=== PATIENT | female | born 1940 | race Caucasian/White ===

== ENCOUNTER 2016-09-16 04:13 | Inpatient (IN) | payer MEDICARE, OTHER ==
[~2016-09-16] VITALS: Ht 157.5 cm; Wt 87.0 kg
[2016-09-16 04:19] VITALS: BP 144/83; PULSE 90; RESP 18; O2SAT 95
--- NOTE | 2016-09-16 05:04 | ED.REPORT ---
HPI-General Illness Date of Service Sep 16, 2016 ED Provider: Esequiel Burr MD A 76 year old female with a history of bipolar disorder and depression presents to the ED accompanied by her son with suicidal ideation onset just prior to arrival. The patient had recently been hoarding her medication below her mattress and told her son she was going to overdose on her pills. She reports recently fighting with her sister and moving in with her son. She attributes a portion of her suicidality to being unhappy with where her son lives, specifically "not recognizing anyone and feeling stranded on an island." The patient reports recent memory loss and anxiety attacks including chest pain, although not currently. She was seen in clinic yesterday and prescribed antibiotics for a UTI. The patient is a poor historian, making irrational statements and arguing during the interview. She will only intermittently answer questions. The patient repeatedly states "don't do this" and "just let me go home," worrying about the cost of treatment despite her son's reassurances. She is not at baseline mental status per her son. Nursing Notes Stated Complaint: DISORIENTED/SUICIDAL THOUGHTS AND ACTIONS Chief Complaint: Psychiatric Complaint Nursing Notes Reviewed: Yes Allergies: Coded Allergies: sertraline (Verified Adverse Reaction, Intermediate, Anxiety, 09/16/16) "I go bananas" General Time Seen by MD: 04:30 Chief Complaint Other (Suicidal Ideation) Hx Obtained From: Patient, Son Arrived By: Walk-in Sudden in Onset?: No Onset Occurred: Just prior to arrival Symptom Duration: Since onset Location: : Chest Severity: Current: No pain currently Severity: Maximum: Moderate Pertinent Negative: Relieved by nothing Context Related History: Reports Psychiatric history Recent Healthcare: Recent doctor visit Similar Sx Previous: No Past Medical History Past Medical History Bipolar disorder Depression Past Surgical History None reported Smoking History Unknown if Ever Smoker Social History Other Social History: Good social support, Lives with children Ambulatory Status Independent Review of Systems Unable to Obtain ROS Patient condition, Mental status Physical Exam Vital Signs Vital Signs Date Time Temp Pulse Resp B/P Pulse Ox O2 Delivery O2 Flow Rate FiO2 09/16/16 06:14 82 16 166/79 97 Room Air 09/16/16 04:19 36.6 90 18 144/83 95 Room Air Initial VS: Reviewed, Vital signs normal Head / Eyes: Atraumatic, Normocephalic ENT: Conjunctiva normal, No scleral icterus Neck: Supple, Full range of motion Respiratory: No respiratory distress Skin: Warm, Dry Neurologic: Alert, Oriented General/Constitutional: Awake, Alert, Well appearing Abnormal Mood/Affect: Positive: Flight of ideas Makes nonsensical statements Interpretation & Diagnostics Lab Results Interpretation Result Diagram: 09/16/16 0525 Test 09/16/16 05:25 09/16/16 06:00 White Blood Count 11.7th/mm3 (3.8-10.1) Red Blood Count 4.68mil/mm3 (3.90-5.20) Hemoglobin 12.8g/dL (12.0-15.6) Hematocrit 38.9% (35.0-46.0) Mean Corpuscular Volume 83.1fL (81-100) Mean Corpuscular Hemoglobin 27.4pg (27.0-35.0) Mean Corpuscular Hemoglobin Concent 32.9% (32.0-37.0) Red Cell Distribution Width 14.1% (12.3-15.4) Platelet Count 267bil/L (150-400) ECG Interpretation ECG Interpretation: Sinus rhythm rate 86 Time: 05:46 Interpreted by: ED physician CT Head Interpretation IMPRESSION: Age related white matter changes. 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 Transmitted to ED at 09/16/2016 - 6:01:54 AM PDT Study: Head CT no contrast Interpretation / Wet Read by: Interpret - Radiologist Re-Eval/Medical Decision Med Decision/Clinical Course 76-year-old female with a history of depression presents with confusion and suicidal ideation, please see history of present illness above. Workup was initiated for medical clearance. Her care is now being turned over at change of shift to Dr. Neil Britton. Time of Eval: 05:51 Re-Evaluation/Progress Note: Patient's care will be endorsed to Dr. Britton Discharge & Departure Shift Change Sign-Out Patient Care Transferred: Yes Discussed Complaint(s): Yes Laboratory Evaluation: Ordered, not yet done Imaging Studies: Imaging discussed Response to Therapy: Improved Primary Impression: Depression Depression Type: reactive depression Qualified Code: F32.9 - Major depressive disorder, single episode, unspecified Additional Impressions: Suicidal ideation Confusion Discharge Condition All VS Reviewed: Yes Condition: Improved Referrals: NOPCP (PCP) Care Transferred to: Dr. Tobi Care Transferred at: 06:00 [place] Attestation Portions of this note were transcribed by Mandie Denise. I, Dr. Burr, personally performed the history, physical exam, and medical decision-making; I reviewed and confirmed the accuracy of the information in the transcribed note. Signed by: Ralph Iglesias, 09/16/2016, 06:00 Esequiel Burr MD Sep 16, 2016 05:04 MANDIE DENISE Sep 16, 2016 05:12
[2016-09-16 05:33] LABS: Mean Corpuscular Hemoglobin 27.4 pg (27.0-35.0); Mean Corpuscular Volume 83.1 fL (81-100)
[2016-09-16 06:14] VITALS: BP 166/79; PULSE 82; RESP 16; O2SAT 97
[2016-09-16 06:36] LABS: APPEARANCE,URINE CLEAR (CLEAR,HAZY); COLOR,URINE YELLOW (YELLOW); OCCULT BLOOD,URINE NEGATIVE (NEGATIVE); UROBILINOGEN,URINE NORMAL (NORMAL)
[2016-09-16 08:16] VITALS: BP 150/65; PULSE 92; RESP 16; O2SAT 98
[2016-09-16] MEDS ORDERED: ALPRAZolam 0.5 mg Tablet PO ONE (08:55)
--- NOTE | 2016-09-16 09:18 | DRSVH ---
PROCEDURE: CT BRAIN WITHOUT CONTRAST ([id number]) INDICATIONS: confusion TECHNIQUE: Noncontrast 4.5 mm thick angled axial sections acquired from the foramen magnum to the vertex, with c oronal reformats. COMPARISON: None. FINDINGS: Image quality: Excellent. CSF spaces: Basal cisterns are patent. No extra-axial fluid collections. The ventricles are symmet juwan in size and shape. Brain: No intracranial bleeds or masses. There is cerebral volume loss for age, with resultant vent ricular and sulcal prominence. There are periventricular and deep white matter chronic small vessel ischemic changes. There is a chronic appearing lacunar infarct within the left external capsule. The re is intracranial internal carotid artery atherosclerosis. Skull and face: Calvarium and visualized facial bones appear intact, without suspicious lesions. Sinuses: Visualized sinuses and mastoids are clear. IMPRESSION: 1. No acute intracranial findings. 2. Moderate findings likely associated with chronic microvascular ischemic changes. An old basal gang albertina infarct. Note: The preliminary [facility] interpretation and the final report are concordant. Dictated by: Verona Love M.D. on 09/16/2016 at 9:16 Approved by: Verona Love M.D. on 09/16/2016 at 9:18
[2016-09-16 13:58] VITALS: BP 148/81; PULSE 84; RESP 16; O2SAT 97
[2016-09-16 18:38] VITALS: BP 147/79; PULSE 80; RESP 16; O2SAT 98
--- NOTE | 2016-09-16 19:00 | NUR ---
Nurses Admission Note 76 year old voluntary female admitted with increasing depression,anxiety,decreased sleep with suicidal ideations. Patient has voiced hopelessness with her family and was found to be hiding several medication vials under her mattress. Patient has recently been living with her son who reported increasing confusion as well as increased depressive symptoms. On 09/14/16 patient was treated at an Urgent Care for a UTI, results faxed to us and was prescribed Nitrofurantoin 100mg Q 12 hrs. Patient presented alert,oriented and responsive. She had poor recall regarding her medications,timelines and avoided speaking about her thoughts and feelings in regards to hidden medications and comments about suicide. Patient contracts for safety,denies feelings of self harm at this time. She has H/O HPTN, NIDDM, and frequent bouts of diarrhea. Will maintain q 15min. checks for safety and support.
[2016-09-16] MEDS ORDERED: Benzocaine-Menthol Lozenge 2/Pkg PO PRN (20:05)
[2016-09-16] MEDS ORDERED: Alum-Mag Hydrox-Simeth 30 mL Suspension PO PRN (20:05)
[2016-09-16] MEDS ORDERED: Magnesium Hydroxide 10 mL Oral Concentration PO PRN (20:05)
[2016-09-16] MEDS: ALPRAZolam 0.25 mg Tablet PO PRN (22:04)
[2016-09-16] MEDS: Zolpidem 5 mg Tablet for FEMALE or >65YO PO PRN (22:04)
--- NOTE | 2016-09-17 00:54 | NUR ---
Observations 1900 to 0700 Pt arrived on the floor for our ED at 1900 and was able to compete the entire intake process. Pt was anxious upon arrival and for most of the night. pt did spend some time out on the floor and visited with some of the other Pt's. Pt first appeared asleep at 23:00 and was observed every 15 minutes through the night as directed.
--- NOTE | 2016-09-17 04:20 | NUR ---
Nursing Note [id number] Pt admitted to unit on shift, appears to be adjusting well. Pt affect flat, with good eye contact maintained. Speech clear with regular rate. Pt thought process disorganized and slight confusion present with inappropriate answers to questions. Pt behavior cooperative and polite. Pt given Ambien 5mg and Xanax 0.25 at 2205. Sleep time noted 2300. Pt up at 0400 with c/o hip pain. Tylenol 650 mg and hot pack given. qw15 min safety checks done per protocol, [facility] [place] sleep, safety, behavior
[2016-09-17] MEDS: Nitrofurantoin Monohyd-Macrocryst 100 mg Capsule PO SCH ×2 (08:14→20:07)
[2016-09-17] MEDS: ALPRAZolam 0.25 mg Tablet PO PRN ×3 (10:03→20:10)
[2016-09-17 10:07] VITALS: BP 110/57; PULSE 97; RESP 16
--- NOTE | 2016-09-17 13:52 | HP ---
[address] [address] HISTORY AND PHYSICAL PATIENT: ARCHANA PAYNE : 1940 MR#: [id number] ADMIT: 09/16/2016 JOB ID: [id number] INITIAL EVALUATION: IDENTIFICATION OF PATIENT: The patient is a 76-year-old female reportedly admitted through the emergency department with evidence of increasing depression, suicidal ideation with a plan and intent to overdose. The patient reportedly was brought in by her son who she is currently residing in the [place]. CHIEF COMPLAINT: "I have really made a mess of things. I should have been smarter about how I did things in the past." This per patient report. HISTORY OF PRESENT ILLNESS: As stated above, the patient is a 76-year-old female who reportedly was admitted due to increasing factors of depression including complaints of anergia, anhedonia, delays of concentration, feelings of hopelessness, worthlessness, helplessness, significant struggles with insomnia, fluctuation of appetite and significant suicidal ideation. She reportedly identified that within the past several days she had put five pills of her sleeping medications in her mouth but spit them out. She reports that she has been residing with her son since July 2016. She reports that prior to that she was living with her daughter and her in the [facility]. She reports that she elected to move in with her son and his in [place]. She indicates that since that time she has been struggling with the fact that the son's is diagnosed as bipolar and that she has her own difficulties that the son is actually trying to take care of. She indicates that she feels that she cannot provide enough for herself despite the fact that she receives a check of over $3000.00 per month. She indicates that she has been spending her money on many of the grandkids and states that she is running low on her finances. In reviewing additional history, she notes that she has been having problems with her memory. She indicates that it seems to be getting worse over the past few months. She indicated that she cannot keep track of things including her finances. She reports that her son has assured her that he can take care of things but she is worried about his own well-being due to the fact that he is a compress trucker by trade but is having some physical difficulties. In reviewing additional history, she notes that she is a type 2 diabetic. She indicates that she does have general medical care through the local clinic. She indicates that she has been diagnosed since her in 1998. She reports that they were for 34 years and that they had their troubles but essentially they made it through pretty much everything. She indicates that she has three children, her son locally, her daughter in [place] and a son who is a chemical dependent and in and out of treatment centers per her own report. PAST MEDICAL HISTORY: Substantial for allergies to SERTRALINE. She denies any recent medical interventions, recent surgeries or fractures. Her current medication profile includes: 1. Macrobid 100 mg b.i.d. for recent diagnosis of UTI. 2. Lisinopril 10 mg daily. 3. Xanax 0.25 mg t.i.d. p.r.n. 4. Celexa 20 mg daily. 5. Tramadol 50 mg q.4 hours p.r.n. for chronic pain. 6. Ambien 5 mg at h.s. p.r.n. 7. She is also on metformin 500 mg q.h.s. and 250 mg q. a.m. PAST PSYCHIATRIC HISTORY: Substantial for previous treatment for depression at the time of her 's . She indicates that she was involved with counseling at the time but nothing of recent. She reports that she has been on Celexa for an unknown period of time and Xanax. SOCIAL HISTORY: Currently the patient is a female living with her son and his . 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 She has three adult children, a son and a daughter living in the [facility], an older son on [place]. Trauma history was not reviewed. FAMILY HISTORY: Deferred. DEVELOPMENT HISTORY: Reportedly the patient was a high school graduate with one semester of college. MENTAL STATUS EXAMINATION: General appearance: The patient is cooperative, polite. She is dressed in scrubs. She makes intermittent eye contact. She indicated that she feels overwhelmed with her current life situation. Her mood is depressed with anxious features. Her affect was congruent. Her thought process showed some evidence of loose and disorganized thinking but she is redirectable. Her thought content, she openly admitted to the above suicidal thoughts. She denied any homicidal ideation. She denied any active hallucinations or delusions. No evidence of paranoia. She was alert, oriented to time and place. Attention and concentration are fleeting. Insight and judgment are fair. ADMITTING IMPRESSIONS: AXIS I 1. Major depressive disorder, recurrent type, severe, nonpsychotic. 2. Generalized anxiety disorder features. 3. Rule out cognitive disorder, not otherwise specified. AXIS II Deferred. AXIS III 1. History of urinary tract infections. 2. History of type 2 diabetes. 3. History of hypertension. AXIS IV Stressors are noted for life transition, financial distress. AXIS V Global assessment of functioning of current 35. PLANS: 1. Recommendations for titration of Celexa to 40 mg daily. 2. Recommendations for continuation of all other medications same. 3. Recommendations for proceeding into outpatient support services including individual therapy and medication management to follow.
--- NOTE | 2016-09-17 14:41 | NUR ---
nursing note day shift S)"I just can't do this he wants me to be the strong mom he remembers" O) Pt continues to be anxious, worried that she won't be able to pay for the stay here and her son will be burdened so much he will lose his job, states she moved up here but besides her son knows no one and has no support, pt becomes very animated with jumping up then flinging herself across the bed throwing up her arms in the air as talks on the phone to son, states she has anxiety attacks that are so severe and that she just wanted to kill herself but states "God will not answer any of my prayers suicide is a sin" sobs with no tears, given anti-anxiety which she found minimally helpful, will keep self safe A)appears anxious, cooperative, distressed over family concerns P) monitor behavior, and medication effectiveness
--- NOTE | 2016-09-17 16:23 | NUR ---
Obs [facility] Pt is very restless, pressured, depressed. States that she is a failure in life. Multi family have called today, each time she has periods of panicking, she states because she is scared to disappoint them further. Pt is slightly intrusive regarding some peers, poor boundaries. Pt states that she has tried different distraction therapies but when pushed on the topic she admits that she hasn't done much. Pt was pushed by staff to stay out of her room, watch a movie or color. Pt does participate when pushed to attend groups. Good ADL's, Good meals
--- NOTE | 2016-09-17 17:28 | NUR ---
Animal Keeper Head/Counselor: S: "I'm memory is not great and I forget things." O: Patient slept 6.5+ hours last night as per staff. Patient reports thoughts of her family would be better off if they didn't have to worry about taking care of her. She denies H/I. She denies auditory and visual hallucinations. A: Patient is cooperative, polite, depressed, anxious, disorganized, overwhelmed. P: Follow your care plan, coordinate out-patient providers.
[2016-09-17] MEDS: Zolpidem 5 mg Tablet for FEMALE or >65YO PO PRN (20:45)
--- NOTE | 2016-09-18 03:33 | NUR ---
Nursing Note [id number] Pt in milieu Addendum: 09/18/16 at 0345 by TAYLOR CANO RN Pt visiting with family upon arrival to the unit. Pt family left shortly after arrival and pt quickly became anxious. Pt started crying at med room door and saying " I can't take it, I don't want to be a burden to my son he has enough to deal with". Pt affect depressed, anxious and thoughts loose and some what disconnected. Attempted to converse with Pt and pt remained guarded stating " I can't tell you I will get in trouble and you will tell everyone". Pt given HS meds, Xanax .25 along with Ambien 5mg PRN. Pt returned to [facility] for snack and to watch tv before retuning to bed. Pt noted asleep 2145. Q15 min safety checks done per protocol, no distress noted, [facility] sleep, safety, behavior
[2016-09-18] MEDS: ALPRAZolam 0.25 mg Tablet PO PRN (06:14)
[2016-09-18] MEDS: Nitrofurantoin Monohyd-Macrocryst 100 mg Capsule PO SCH ×2 (08:35→21:21)
[2016-09-18 08:40] VITALS: BP 161/87; PULSE 94; RESP 17
[2016-09-18] MEDS: BusPIRone 15 mg Dividose Tablet PO SCH ×2 (12:10→21:21)
--- NOTE | 2016-09-18 13:23 | PROG NOTE ---
[address] [address] PROGRESS NOTE PATIENT: ARCHANA PAYNE : 1940 MR#: [id number] ADMIT: 09/16/2016 JOB ID: [id number] DATE: 09/18/2016 CHIEF COMPLAINT: "I just really screwed up, I don't want to live like this any longer." This per patient report. HISTORY OF PRESENT ILLNESS: As stated above, the patient continues to struggle with factors of feelings of worthlessness, hopelessness and helplessness. She openly identified significant difficulties with anxiety throughout the morning hours stating that she feels that she has become a burden to her son and feels significant guilt and shame. She openly identified that she has been struggling for quite some time and states that she does not want live her life this way. She was able to track factor in positives of her life with some guided direction openly identifying that her family and friends mean everything to her and that she would like to continue to live life to have contact with them. She immediately, however, falls repeatedly into feelings of guilt and shame as related to her current struggles in life. OBJECTIVE: On mental status examination, she is quite anxious throughout. Dramatic, clenching her fist and grabbing her chest repeatedly with open declaration that she is a burden, that no one should have to care for her. Her speech is quite dramatic throughout. She has significant vulgarity that is scattered throughout her speech at times. Her mood is alexithymic. Her affect is labile. Her thought process shows no evidence of racing thoughts, flight of ideas, loose or disconnected thinking. Her thought content, she readily denies any evidence of suicidal ideation, intent or plan but openly states that she would like to be throughout her course of conversation stating that she feels that she can no longer be a burden to her family and friends. She denies any homicidal ideation. There was no evidence of hallucinations, delusions. She was alert, oriented to time and place. Her attention and concentration are fleeting. Insight and judgment are poor. PHYSICAL EXAM: Vital signs are current. Temperature is 36.1, pulse 94, respirations 17, BP 161/87. MEDICATION REVIEW: Includes: 1. Celexa 40 mg daily. 2. Metformin 500 mg q.h.s., 250 mg q. a.m. 3. Macrobid 100 mg b.i.d. 4. Ultram 50 mg q.4 hours p.r.n. 5. Xanax 0.25 mg t.i.d. p.r.n. 6. Also lisinopril 10 mg daily. ASSESSMENT: AXIS I 1. Major depressive disorder, recurrent type, nonpsychotic. 2. Generalized anxiety disorder. 3. Rule out cognitive disorder, not otherwise specified. AXIS II Cluster B personality features. AXIS III 1. History of urinary tract infection. 2. History of type 2 diabetes. 3. History of hypertension. AXIS IV Stressors are noted for life transition, financial distress. AXIS V Global assessment of functioning of current 35. PLANS: 1. Recommendations for discontinuation of Xanax. 2. Introductions of BuSpar 15 mg b.i.d. 3. Recommendations for continuation of therapeutic and supportive interventions including cognitive behavioral therapy, and also address the patient's underlying factors of anxiety.
--- NOTE | 2016-09-18 16:10 | NUR ---
Observations [id number] Pt was asleep upon start of shift. Pt did not attend Community Meeting but did attend breakfast, late. Pt appears to be very flighty in actions, appears nervous, anxious and emotional. Pt appears to have a very difficult time making decisions regarding any task or question. She paced the halls, unsure of what or where to go next. Pt did attend meals, eating an average of 50%. She used the phone to talk with family, which appeared to upset her. Pt also attended group, working on a Enconcert. Pt did not engage much with peers, and appeared to be anxious and upset when others talked with her. Pt was later observed hitting her head on the table and in her room. She was observed every 15 minutes of shift as directed.
[2016-09-18] MEDS: Nystatin 100,000 Unit/Gm 15 Gm Powder TOPICAL SCH ×2 (17:29→21:21)
--- NOTE | 2016-09-18 18:16 | NUR ---
Residential Plumber/Counselor: S: "I'm just really screwed, I don't want to live like this any longer." O: Patient slept 7.5 hours last night as per staff. Patient denies S/I and H/I. She denies auditory and visual hallucinations. A: Patient is cooperative, anxious, dramatic, labile, poor insight, poor judgment. P: Follow your care plan, coordinate out-patient providers.
--- NOTE | 2016-09-18 18:27 | NUR ---
Nursing Note Day shift 7am to 7pm AAOx3 Behavior- Pt presents as dependent, helpless, dramatic, and ambivalent exhibiting Affect and mood - Pt reports depression 01/05, anxiety 10/06. Mood is labile, intermittently tearful. Denies intent to hurt self but admits to hopelessness thinks her family would be better off without her Thought Process - Preoccupied with themes of guilt and shame, worthlessness and feeling like a burden on children. Difficulty concentrating. Denies A/VH. Nursing/Medication- Pts a.m. BP 167/87 p. 94, Pt received Ultram for pain in hip 01/05 with good relief. Xanax D/cd and replace with Vistaril 50mg prn TID for anxiety. Pt showered with entry level marketing assistant. Very dramatic during task, asked flex o writer operator to assist stating I cant do it by myself. Pt appears able to maintain ADLs but needed prompting and at times would stop and throw herself over the shower chair stating I just cant do it. Why cant I take care of myself. Addendum: 09/18/16 at 1834 by KELLEY COPE RN Please disregard note below This documentation was not meant for this pt. Addendum: 09/18/16 at 1841 by KELLEY COPE RN Please disregard previous addendum. This note is for pt Shelly Levy
[2016-09-18] MEDS: Zolpidem 5 mg Tablet for FEMALE or >65YO PO PRN (22:23)
--- NOTE | 2016-09-19 04:02 | NUR ---
Nursing Noc "I need my sleeping pill", Pt cooperative and ambivalent, I dont know what my medications are. Pt noted to be asleep at 2200 and remained asleep throughout the night. Continuing to monitor mood, behavior, sleep times and safety Q15 minutes. CP
--- NOTE | 2016-09-19 05:01 | NUR ---
OBSERVATIONS 1900 TO 0700 Pt was cooperative with staff and maintained appropriate behavior throughout the shift. Pt participated in evening wrap-up group, rated her day as well as her mood 10/06 and stated that although she did not set a goal in the morning, she felt happy with what she accomplished for the day. Pt became disproportionately distressed a number of times in the evening over insignificant details that were easily managed. Pt was noted asleep 2345 to 0400 and back asleep again at 0445. Maintained Q15 safety checks as directed.
[2016-09-19] MEDS: Nystatin 100,000 Unit/Gm 15 Gm Powder TOPICAL SCH ×2 (08:05→20:09)
[2016-09-19] MEDS: Nitrofurantoin Monohyd-Macrocryst 100 mg Capsule PO SCH ×2 (08:06→20:05)
[2016-09-19] MEDS: BusPIRone 15 mg Dividose Tablet PO SCH (08:06)
[2016-09-19 08:30] VITALS: BP 129/70; PULSE 99; RESP 16
--- NOTE | 2016-09-19 13:48 | PROG NOTE ---
[address] [address] PROGRESS NOTE PATIENT: ARCHANA PAYNE : 1940 MR#: [id number] ADMIT: 09/16/2016 JOB ID: [id number] DATE: 09/19/2016 CHIEF COMPLAINT: "I just can't do this to my son." This is per patient report. HISTORY OF PRESENT ILLNESS: As stated above, the patient continues to be quite anxious, dramatic, and perseverative in reference to the burden that she is placing on her son. She made an open identification that she feels that she is putting him through way too much and she was unwilling to actually look at alternative thinking. She was encouraged to continue to participate in group activities but indicates that she really has not felt that she has learned anything. She remains on medications including Celexa 40 mg daily and also received introduction doses of Buspar 15 mg b.i.d., as of yesterday. In review of her current medical status, she does have a history of type 2 diabetes with laboratory data including blood glucose of 113 at the point of arrival. Hemoglobin A1c was not completed and I will order one as of today. OBJECTIVE: On mental status exam, she remains quite anxious. Approaches myself multiple times throughout the hallway interaction. She continues to perseverate about her ongoing fears of finances. Her speech is pressured at points. Her mood is highly anxious. Her affect is elevated. Her thought process shows evidence of racing thoughts. She continues to be able to actually restructure and reorganize and redirect, but there takes great interventions with concrete presentation. She was alert, oriented to time and place. Her attention and concentration are fleeting. She denied any evidence of current suicidal or homicidal ideation. She does feel worthless and openly identifies a desire to and let it be over with. She denies any contemplative planning. Her insight and judgment are poor. PHYSICAL EXAM: Vital signs: Current are not listed for today. CURRENT MEDICATIONS: Include: 1. BuSpar 15 mg b.i.d. 2. Vistaril 50 mg t.i.d. p.r.n. 3. Celexa 40 mg q.a.m. 4. Metformin 250 mg q.a.m., 500 mg q.h.s. 5. Lisinopril 10 mg q.a.m. 6. Macrobid 100 mg b.i.d. 7. Tramadol 50 mg q.4 h. p.r.n. for moderate pain. ASSESSMENT: [place] I. 1. Generalized anxiety disorder. 2. Panic disorder without agoraphobia. 3. Major depressive disorder, recurrent type, nonpsychotic. [place] II. Cluster B personality features. [place] III. 1. History of type 2 diabetes. 2. History of hypertension. 3. History of topical rash to bilateral upper arms. [place] IV. Stressors are noted for transitional life, financial difficulties. [place] V. Global Assessment of Functioning current 30. PLAN: 1. Recommendations for introductions of BuSpar as noted, with further titration beginning tomorrow up to 30 mg b.i.d. 2. Continuation of Celexa 40 mg q.a.m. 3. Continuation of all other medications noted. 4. Patient was encouraged to participate in both individual and group therapy components with focused interventions of anxiety, utilizing anxiety workbook practice sheets, et cetera.
--- NOTE | 2016-09-19 14:18 | NUR ---
Nursing Dayshift: S: "I have fear of the known. I'm hurting my son." O: Patient very forlorn and self absorbed in self blame for current issues in her life. Declines suggestion to get her own place "I blew all of my money. My son needs it. I had a lot of car payments and insurance." Disagrees with time helping in the long run. Isolating but with occasional entrances into the dining room for a short while. Good appetite at lunch. Declined groups thus far except for goals group this AM with a goal to shower which she did. Anxiety and depression "very high". Received hydroxyzine 50 mg PO at 1128 without much effectiveness per patient. Denies harmful thoughts and hallucinations. A: Med compliant. Anxious. Fretting. P: CPOC. Monitor mood and behavior. Meds per orders.
--- NOTE | 2016-09-19 18:14 | NUR ---
REFUSED METFORMIN At 17:30 this junior technical writer approached the pt. in her room to give her scheduled Metformin. She was lying still on her bed but began flailing when this junior technical writer came in to her room. Pt. appeared very overwhelmed and upset, making statements about her son being murdered and was not willing to take her medication. Reassurance provided.
--- NOTE | 2016-09-19 18:36 | NUR ---
[facility] Day Shift Pt maintained behavioral control throughout the shift, but has difficulty maintaining emotional control. Pt affect appears labile. Pt spends most of the shift pacing the unit, resting in her room, or attempting to engage in unit activities. Pt is appropriate with staff and peers when active on the unit, despite pt inconsistent affect. Pt expresses a considerable amount of self-deprecation and negativity during interactions with staff and peers. Pt self-deprecating speech and behavior appears to worsen as the shift progresses. Pt attended community meeting and afternoon group activities. Pt attended all meals and ate approx 30% of all meals.
--- NOTE | 2016-09-19 18:45 | NUR ---
Biomedical Equipment Specialist/Counselor: S: "I'm worried about my finances." O: Patient slept 6+ hours last night as per staff. Patient denies S/I and H/I. She denies auditory and visual hallucinations. This short story writer spoke with patient's son, Newton, and he stated that patient gets $2837.00 a month, not $3800.00, however, since patient has been in his home, all of her bills have been paid and ALL credit cards are at a $0.00 balance. Son stated that he doesn't know why patient is stating that she has bill that have not been paid. He stated that patient has a surplus of $2000.00 monthly. He also stated that he did not say that he would kill himself if patient killed herself. He stated that he said, "The entire family would be so hurt if she would have killed herself." A: Patient is cooperative, anxious, dramatic, pressured speech, hopeless, helpless, labile, poor insight, poor judgment. P: Follow your care plan, coordinate out-patient providers.
--- NOTE | 2016-09-20 04:11 | NUR ---
Nursing Noc Pt presents anxious, dramatic, pressured speech, hopeless, helpless, labile, poor insight reporting diarrhea at times and prolapsing problem of possible bladder or uterus. Female nurse visualized without reported abnormality. Pt reports voiding without difficulty throughout the day. Hemoglobin A1C results back from 09/19. Pt out to DR to request sleep aid then noted to be asleep at 2345. Pt appears to remain asleep throughout the shift by Q15 minute safety checks.
[2016-09-20] MEDS: Nitrofurantoin Monohyd-Macrocryst 100 mg Capsule PO SCH ×2 (07:57→20:01)
[2016-09-20] MEDS: BusPIRone 15 mg Dividose Tablet PO SCH ×3 (07:57→20:01)
[2016-09-20 08:10] VITALS: BP 145/85; PULSE 117; RESP 20
[2016-09-20] MEDS: Nystatin 100,000 Unit/Gm 15 Gm Powder TOPICAL SCH ×2 (08:30→20:05)
--- NOTE | 2016-09-20 14:07 | PROG NOTE ---
[address] [address] PROGRESS NOTE PATIENT: ARCHANA PAYNE : 1940 MR#: [id number] ADMIT: 09/16/2016 JOB ID: [id number] DATE: 09/20/2016 CHIEF COMPLAINT: "I really don't want my son to be responsible for my bill, I'll never get over that." This per patient report. HISTORY OF PRESENT ILLNESS: As stated above, the patient continues to perseverate about the financial cost of her current hospitalization. She indicates that she is very worried and feeling hopeless about her son being responsible. She continues to show significant difficulties with anxiety throughout the daytime hours with anxious and dramatic presentation. The patient reportedly did sleep last evening fairly well per staff report, but indicates that she feels that she is not getting a full amount of sleep. OBJECTIVE: On mental status examination, the patient remains quite dramatic. She makes intermittent eye contact. She openly identifies her significant worries. Her mood is anxious. Her affect continues to be elevated. Her thought process shows perseverative thought process but she is able to redirect. She denies any evidence of current suicidal ideation, but admits to feelings of hopelessness, and shame and identifies that she just does not want to live this way. She denies any active hallucinations, delusions. She is alert, oriented to time and place. Her attention and concentration intact. Memory intact in the short term, detention, recent. Insight and judgment are fair. PHYSICAL EXAMINATION: Vital signs: Temperature is 36.3, pulse 117, respirations 20, BP 145/85. MEDICATION REVIEW: Includes: 1. BuSpar 30 mg b.i.d. 2. Vistaril 50 mg t.i.d. p.r.n. 3. Celexa 40 mg q. a.m. 4. Metformin 250 mg, 500 mg q.h.s. 5. Macrobid 100 mg b.i.d. 6. Ultram 50 mg q.4 hours p.r.n. LABORATORIES: Review of laboratory data included hemoglobin A1c at 7.5. ASSESSMENT: AXIS I 1. Major depressive disorder, recurrent type, severe, nonpsychotic. 2. Generalized anxiety disorder. 3. Panic disorder without agoraphobia. AXIS II Cluster B personality features. AXIS III 1. History of type 2 diabetes. 2. History of hypertension. 3. History of urinary tract infection. 4. History of chronic pain. AXIS IV Stressors are noted for life transition. AXIS V Global assessment of functioning of current 35. PLAN: 1. Recommendations for titration of metformin to 500 mg b.i.d. based on her elevated A1c. 2. Consideration of a hospitalist consult or referrals for outpatient practitioner to be involved in diabetic management in the future. 3. Continuation of support system as noted with probable followup including individual therapy, medication management in the [place].
--- NOTE | 2016-09-20 17:26 | NUR ---
Nursing Note [id number] S: "It is all my fault, I made a terrible decision". "I wanted someone to take care of me now". "My son is going to work himself to , and his will , and his dogs and it will be my fault". "His is bi-polar and went Hotel General Manager learning and development coordinator". "I can't make it stop". O: Patient pacing, restless, grimacing, clinching teeth. Hitting hand on thigh or chair in frustration. A: Anxious, animated, self-deprecating, self-blaming and very dramatic. P: Monitor for safety and response to treatment. Follow plan of care. PRNs Vistaril 50 mg po @ 11:00 for anxiety. Son, Malachi, called. Patient reporting to son that she is "unable to urinate" and her bladder is "coming out and is perforating". Bladder scan showed 223 mls. Physical inspection also revealed her cervix descending from the vagina. Patient also reported some midline lower abdominal tenderness during bladder scan.
--- NOTE | 2016-09-20 18:40 | NUR ---
Captain Airline Pilot./ c.m. S.:"I'm not good! It's me... it's all me... I will be in restrains with no water and my lips will be chopped... My son will and his family will and their dog will ... and it's all because of me!" O.: met with pt. in her room. She was in bed resting after dinner. She made all above comments as soon as the junior copywriter asked pt. a question about her progress. She said that she slept about 7 hrs last night with a sleeping aid but she was upset about "so little sleep." She continued moving backwards and forwards describing her future and making gestures. She didn't want to hear anything else. She didn't hear that her son was doing well. She couldn't carry on a conversation in a calm manner. A.; pt. is anxious, very dramatic, confused and scattered in her thoughts. P.: monitor behavior, work on anxiety coping skills, encourage pt. to practice deep breathing and reality check; follow care plan.
--- NOTE | 2016-09-20 20:28 | NUR ---
OBSERVATIONS 0900 TO 2130 Pt mood and affect were similar to previous shift. Pt perseverates on guilt expressing that she feels as though she is ruining her son's life because of things she has done and because she thinks she is a great burden to him. Pt has a negative outlook on quite possibly everything. Any suggestion made of coping strategies was met with a scoff. Pt did, however, join a group in the group room a couple of times throughout the day and evening wrap-up. Pt reported that she accomplished her goals of getting out of bed, coming out for breakfast, and showering. Pt reported having a bad day but was unable to give a number. Maintained Q15 checks for safety as directed.
[2016-09-20] MEDS: Zolpidem 5 mg Tablet for FEMALE or >65YO PO PRN (22:45)
--- NOTE | 2016-09-21 03:17 | NUR ---
Observations 1900 to 0700 Pt was anxious and all over the place last night. Pt was having a hard time staying calm while talking to her son on the phone. Pt eventually calmed down with help from staff. Pt first appeared asleep at 23:00 and was observed every 15 minutes through the night as directed.
--- NOTE | 2016-09-21 05:06 | NUR ---
Nursing Noc Patient remains very dramatic when being observed by staff. Noted to Isolate to room mid evening and requested PRN for sleep. Noted by Q15 minute safety checks to be asleep at 2300 and remained asleep throughout the shift. Continuing to monitor mood behavior emotional state
[2016-09-21 08:00] VITALS: BP 151/82; PULSE 106; RESP 16
[2016-09-21] MEDS: BusPIRone 15 mg Dividose Tablet PO SCH ×2 (08:35→20:03)
[2016-09-21] MEDS: Nitrofurantoin Monohyd-Macrocryst 100 mg Capsule PO SCH ×2 (08:36→20:16)
[2016-09-21] MEDS: Nystatin 100,000 Unit/Gm 15 Gm Powder TOPICAL SCH ×2 (10:18→20:06)
--- NOTE | 2016-09-21 11:28 | NUR ---
Nursing Day Shift- S- "I'm doing this for sympathy and I know it! but I can't stop! I'm a terrible person!" (Pt. was sitting in the DR, gently pulling her hair then placing her hands on her throat while staff was observing her. Behaviors would increase with staff attention.) O- Pt. had slept well per generator mechanic report. She woke for breakfast and eat well. Pt. became dramatic with the above behaviors when staff presented her morning medications. Pt. was encouraged to shower. She alerted staff to a "mess" in her bedroom that turned out to be a soft formed bowel movement appropriately in her toilet. Pt. was encouraged to flush, then shower. A- Childlike, regressed, attention seeking behavior. Apparent self awareness of inappropriate behavior and it's negative effects on her relationships. Appears to be seeking care taking. P- Encourage self reliance and provide positive reinforcement for self care. Cont. BHTP.
--- NOTE | 2016-09-21 13:41 | NUR ---
Forming Process Worker./ c.m. S.:"I feel sorry for myself and I know that it is selfish... I know that you are going to kick me out!" O.: met with pt. and doctor together in pt.'s room. She was sitting on her bed. She complained about being here and about possible "discharge tomorrow." She didn't believe that she had financial stability and that her son was ok taking care of her financial issues. She said that she "would be homeless" and won't be able to afford medications or outpatient services. She admitted feeling sorry for herself. She was up and down making quick walks around. She was accusing doctor in discharging her home very soon. Finally she said that she wished "to be " but she didn't specify what she meant by that. She couldn't follow a conversation. She slept well last night according to staff report. She couldn't rate depression or anxiety. She was upset when doctor mentioned a mtg with her son during his visit today. A.: pt. is confused, scattered, very dramatic, negative, seeking attention. She looks restless and internally preoccupied. P.: monitor behavior, encourage pt. to practice deep breathing, monitor meds intake, possible mtg with pt. and her son; follow care plan. Addendum: 09/21/16 at 1609 by YANIQUE STERLING [facility] – [place], [place] Forming Process Worker./ c.m. S./O.: met with pt.'s son and [id number]. Pt.'s son was concerned about pt. condition and her uncharacteristic behavior. He also was concerned about sharing with her a bad news related to of her best friend on September 17. He wanted to have doctor's permission to do that. He said that he would talk to pt. about staying here as long as she needs in order to get better. He brought her 2 sets of cards because she liked playing them at home. He is planing to visit today for as long time as pt. can tolerate. He will be back tomorrow evening during visiting hrs. Engineer Steam found pt. in her bathroom hitting her head at the door frame. She didn't want to come out for a visit with her son but with a lot of encouragements she was able to come to the Dining room for a visit. A.: pt. was very anxious, confused and dramatic. Pt.'s son is very supportive. P.: monitor behavior, provide safety in the unit; follow care plan.
--- NOTE | 2016-09-21 17:25 | NUR ---
[facility] Day Shift Pt maintained behavioral control throughout the shift, but has difficulty maintaining emotional control. Pt affect appears labile. Pt spends most of the shift pacing the unit, resting in her room, or attempting to engage in unit activities. Pt is appropriate with staff and peers when active on the unit, despite pt inconsistent affect. Pt expresses a considerable amount of self-deprecation and negativity during interactions with staff and peers. Pt occasionally observed superficially striking her head against her bedroom read. Pt did not attend group activities throughout the shift. Pt attended all meals and ate approx 75% of all meals.
--- NOTE | 2016-09-21 18:48 | PROG NOTE ---
[address] [address] PROGRESS NOTE PATIENT: ARCHANA PAYNE : 1940 MR#: [id number] ADMIT: 09/16/2016 JOB ID: [id number] DATE: 09/21/2016 CHIEF COMPLAINT: "I do not want my son to be responsible for this bill, I want to live but yet I want to ." HISTORY OF PRESENT ILLNESS: As stated above, the patient met at length with myself and the protective services case worker, Beverley, with continuation of perseverative thought, anxiety manifestations and significant melodrama. The patient made intermittent eye contact and got up during the course of conversation, pacing throughout the course of intervention. The patient openly identified that she feels inadequate, hopeless, helpless, worthless. She admitted to fluctuation of thoughts of wanting to live and wanting to . She continues to perseverate on financial difficulties, identifying that she believes that her son will be financially responsible for her bill and that he cannot afford it nor can she bear the potential of that. She was willing to have Beverley meet with us later on this afternoon. However, she also noted that she was concerned about this meeting and continues to perseverate in a nonsensical melodramatic way. MENTAL STATUS EXAM: As noted above, the patient does pace throughout the course of conversation. She openly identifies significant difficulties with overwhelming anxiety. Her speech is pressured at points. Her mood is anxious and dramatic. Affect is incongruent. Her thought process shows no evidence of random flight of ideas, loose or disconnected thinking. Her thought content: She openly admitted to significant struggles with random flight of ideas, but it appears more perseverative and personality-based than a true disturbance of her thought process. Her thought content: She denied any evidence of current suicidal or homicidal ideation, but does admit to significant fluctuations of a desire to want to live and to . She denied any active hallucinations or delusions. She was alert, oriented to time and place. Her attention and concentration are poor. Insight and judgment are poor. PHYSICAL EXAM: Vital signs of current, temperature is 36.3, pulse 117, respirations 20, BP 145/85. MEDICATION REVIEW: 1. Metformin 500 mg b.i.d. 2. BuSpar 30 mg b.i.d. 3. Vistaril 50 mg t.i.d. p.r.n. 4. Celexa 40 mg daily. 5. Lisinopril 10 mg daily. 6. Macrobid 100 mg b.i.d. 7. Ultram 50 mg q.4 h. p.r.n. 8. Ambien 5 mg at h.s. p.r.n. ASSESSMENT: [place] I1. Generalized anxiety disorder. 2. Major depressive disorder, recurrent type, nonpsychotic, severe. 3. Panic disorder without agoraphobia. [place] IIHistrionic personality disorder. [place] III1. History of type 2 diabetes. 2. History of hypertension. 3. History of urinary tract infection. 4. History of chronic pain. [place] IVStressors are noted for life transition. [place] VGlobal assessment of functioning current 35. PLAN: 1. Recommendations for family meeting today to be held with her son to clarify discharge planning including outpatient access of individual therapy, medication management. 2. Continuation of all medications noted.
--- NOTE | 2016-09-21 20:37 | NUR ---
NURSING NOTE [id number] Mood: "terrible!" *sighs* Affect: vacillates between calm/quiet/isolative to distressed and restless Behavior: at start of shift she was lightly banging her head against her bedroom door when her CM came to see her. Her son and [id number] visited her but decided to leave as she was becoming fretful w/them. They offered to come back in a little while but when presented with options she becomes overwhelmed and indecisive, so they departed. Pt. eventually agreed to take a PRN Vistaril 50 mg at 16:45 and it appeared to be quite effective as the pt. calmed down, was appropriate in the milieu, and even smiled a few times while watching a movie in the DR. At 1900 she had a loose stool and it got on her legs; she was assisted w/clean-up. Thought processes: continues to be fretful, vague SI w/no plan/intent. She called her son circa 18:30 and expressed suicidal ideation and he called the unit to report it. When this senior medical writer assessed the pt. she expressed she doesn't *want* to but worries that she *will* somehow and that "everything always goes wrong for me". She verbally contracted for safety and agreed to notify staff if she develops a plan or intent. Her family told this senior medical writer that they have never seen the pt. behave this way, that she has never had this sort of a negative attitude or dramatic, fretful presentation. They reported that it came on suddenly a few weeks ago, then she had one day where she was completely back to normal and then returned to the fretful behavior once again which has persisted up until now. They reported that she has had tests done previously and was told by a doctor that she likely suffered a minor stroke at some point.
[2016-09-22] MEDS: Zolpidem 5 mg Tablet for FEMALE or >65YO PO PRN (01:21)
--- NOTE | 2016-09-22 04:44 | NUR ---
Nursing Note Railway Equipment Operator 11pm to 7am Pt had a difficult time getting to sleep tonight. At early part of shift pt fluctuated between bed and pacing in her room, wringing her hands with worry and perseverating about feeling worthless and having guilt her hospital stay. Pt accepted offer of Ambien 5mg for sleep at 0130 with much ambivalence. When this publications writer turned to leave the room, pt yelled, " Please don't leave me" got up and came to this publications writer with hand outstretched and stated. "You know I am doing this for you, not me" and went to bed. Pt woke several more times throughout the night. Monitoring ongoing.
[2016-09-22] MEDS: Nitrofurantoin Monohyd-Macrocryst 100 mg Capsule PO SCH ×3 (08:00→20:36)
[2016-09-22] MEDS: Nystatin 100,000 Unit/Gm 15 Gm Powder TOPICAL SCH ×2 (08:30→20:37)
[2016-09-22] MEDS: BusPIRone 15 mg Dividose Tablet PO SCH ×3 (09:42→20:36)
[2016-09-22 10:31] VITALS: BP 113/62; PULSE 92; RESP 15
--- NOTE | 2016-09-22 12:38 | NUR ---
Product Development Scientist./ c.m. S.:"I checked my pills... I didn't eat. I can't fight for my mind..." O.: met with pt. and doctor together in pt.'s room. Pt. was sitting on her bed, but she couldn't stay on one place. She was up and down and walking around with a lot of frustration and emotions. She couldn't sleep well last night. "Oh, ye... I slept a little with that sleeping drug of yours!" She couldn't carry on a conversation well . She was making unrelated comments on and off. She was frustrated with her mental condition. She was upset about her visit with her son and [id number] yesterday. She said that he son was going to visit her tonight again. She couldn't tell if she had SI/HI or not. She felt depressed but she couldn't rate it. She spent most of the time in her room. She had difficulty finishing her sentences. A.: pt. is isolative, frustrated, very dramatic, scattered in her thoughts. She looks unkempt and has poor eye contact. P.: monitor behavior, monitor for safety, encourage pt. to attend unit activities; follow care plan.
--- NOTE | 2016-09-22 13:33 | PROG NOTE ---
[address] [address] PROGRESS NOTE PATIENT: ARCHANA PAYNE : 1940 MR#: [id number] ADMIT: 09/16/2016 JOB ID: [id number] DATE: 09/22/2016 CHIEF COMPLAINT: "You don't know what it feels like, sometimes I just want to end it." This is per patient report. HISTORY OF THE PRESENT ILLNESS: As stated above, the patient continues to perseverate on difficulties with her current life status. She openly identified chronic worries with financial status and also a significant feeling of hopelessness and despair. She identified that she is currently struggling with thoughts of not wanting to be alive, but she knows that it would only hurt her children. She did meet with the case reviewer and her son yesterday, and information was obtained with significant concern expressed by the son that there has been a significant change of patient's behavior with recent development with a stroke and also the UTI diagnosed prior to her injury. The patient continues on doses of Macrobid as noted for UTI, and there has been no followup laboratory data collected at this time. She reports that she is having no symptoms of urinary pain or burning. Collection of laboratory data over the weekend included a hemoglobin A1c which was noted at 7.5. At that time, I titrated her dose of metformin from 250 mg to 500 mg b.i.d. The patient readily identifies that she continues to struggle with rigid thought process and feeling as if she is getting on a [id number] with her worries. I have discussed institution of doses of Seroquel, low dose at 25 mg b.i.d. with targeted response in reference to her rigidity of thought. OBJECTIVE: On mental status exam, as noted above, the patient is quite anxious on approach. She paces throughout the course of conversation. She has difficulties with circumferential thought throughout. She wrings her hands excessively. Her speech is pressured at times. She has had significantly increased vulgarity, which per the son's report is highly atypical and unusual. Her mood is highly anxious and dysphoric. Her affect is irritable, labile. Her thought process shows evidence of some loose and disorganized thinking. Her thought content: She denied any evidence of current suicidal, homicidal ideation, although states repeatedly that she has no reason to live, no reason to go on. She denies any evidence of paranoia but continues to be quite suspicious in reference to the validity of her financial concerns. No evidence of active hallucinations. She was alert, oriented to person and place. Her attention and concentration are poor. Insight and judgment are poor. PHYSICAL EXAM: Vital signs are current. Temperature is 36.4, pulse 92, respirations 15, BP 113/62. MEDICATION REVIEW: Includes: 1. Metformin 500 mg b.i.d. 2. BuSpar 30 mg b.i.d. 3. Celexa 40 mg daily. 4. Lisinopril 10 mg daily. 5. Macrobid 100 mg b.i.d. 6. Tramadol 50 mg q.4 h. p.r.n., last dose on the . ASSESSMENT: AXIS I: 1. Generalized anxiety disorder. 2. Major depressive disorder, recurrent type, nonpsychotic, severe. 3. Panic disorder without agoraphobia. 4. 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 AXIS III: 1. History of type 2 diabetes. 2. History of hypertension. 3. History of urinary tract infection. 4. History of chronic pain. AXIS IV: Stressors are noted for life transition. AXIS V: Global Assessment of Functioning of current 35. PLAN: 1. Recommendations for initiation of Seroquel 25 mg b.i.d. 2. Continuation of all other medications noted. 3. Discussion will be held with family members. Possibilities of applications for assisted living based on the patient's significant inability to care for self and her medical complexities, as well as potential cognitive disorder with a suspicion of underlying factors of dementia.
--- NOTE | 2016-09-22 14:16 | NUR ---
Nursing Note [id number] Behavior S/O: Pt refused breakfast, but ate 50% of lunch. VS stable. Pt resistant to taking am medications, but took medications with much encouragement. Pt in her room most of the day except for lunch & community meeting. Gait weaving in a zig-zag pattern when walking down the [place] this morning. Conversation tracking clear & organized. Pt has negative self-talk. Pt stated this morning, "I'll be by the end of the week." A: Pt isolative & resistant to cares. P: Provide supportive environment. Monitor medications & effects.
--- NOTE | 2016-09-22 17:14 | NUR ---
Obs Dayshift Pt spends her day in her room, in bed. Little to No change from last week. Pt is negative toward self, states that she has been a failure. Pt is not participating in groups or activities on the unit. Pt has little to no engagement w/ peers. Pt only comes out of her room for meals, refusing snacks, and groups. Pt will go to a group when staff is pushing her to go but does not participate, sits quiet and is mute when asked questions. Pt is dramatic, negative, sad, depressed, isolating, quiet Ok ADL's, Good meals
--- NOTE | 2016-09-22 18:54 | NUR ---
NURSING NOTE [id number] Mood: "I'm reaching the end of my rope, it's bad, it's real bad" Affect: labile; fretful at times, calm at other times Behavior: isolating in room in bed at start of shift, did agree to come out to eat 50% of her dinner. 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 She perseverates when she is given options to do things; e.g. whether to take a PRN or whether to take a phone call. When this policy writer gives her a countdown to make a decision the pt. does commit and makes the decision at the last second of the countdown. Did write some positive affirmations on a sheet of paper that she keeps in her room. Currently visiting w/her son and [id number]. Thought processes: continues w/negative self-talk, vague SI w/no plan or intent, anxious. PRN Vistaril 50 mg for anxiety and Tramadol 50 mg @ 1800 for back pain (pt. unable to give rating but was clutching her lower back and grimacing as if in agony)
--- NOTE | 2016-09-22 23:04 | NUR ---
evening activity patient remained in the common area throughout the evening. participated in the group. ate popcorn. brightened visibly when complimented on her hair piece. agreeable to evening medications, suspicious of buspar, but swallowed it. retired to her room, now resting. care ongoing.
--- NOTE | 2016-09-23 02:09 | NUR ---
Observations 1900 to 0700 Pt was anxious but a little improved. Pt was visiting with her when my shift started. Pt was still confused on the floor. Pt had a hard time sleeping at night. Pt first appeared asleep at 22:00 and was observed every 15 minutes through the night as directed.
--- NOTE | 2016-09-23 06:14 | NUR ---
agitation / anxiety patient very anxious about her sister. concerned that when her sister comes to visit her in [facility], her son will kill the sister. delusional. offered hydroxyzine 50mg for anxiety / agitation patient in room at this time care ongoing.
[2016-09-23] MEDS: Nitrofurantoin Monohyd-Macrocryst 100 mg Capsule PO SCH ×2 (08:00→21:11)
[2016-09-23] MEDS: Nystatin 100,000 Unit/Gm 15 Gm Powder TOPICAL SCH ×2 (08:30→22:18)
[2016-09-23] MEDS: BusPIRone 15 mg Dividose Tablet PO SCH ×2 (08:30→21:11)
[2016-09-23 10:55] VITALS: BP 116/72; PULSE 111; RESP 17
--- NOTE | 2016-09-23 11:27 | NUR ---
Nursing Note [id number] Behavior S/O: Pt acted as though she wanted medications this morning, but refused medications three times this morning before she accepted them hesitantly. She stated, "I'm not feeling good....I know I should take them....I'm a burden to my son....I'm not getting any better....I need to take a shower, but I can't do it myself....I urinated on myself." In shower with pt. Pt able to undress, shower (with the use of a shower chair), and get dressed again. Pt stated, "I can remember things from when I was a child, but I can't remember what's going on now. Is that normal?" Pt has poor appetite. VS stable. A: Pt has poor self talk. She is capable of doing things on her own, but doesn't want to. P: Provide supportive environment. Monitor medications & effects. Addendum: 09/23/16 at 1156 by JOSE ALEJANDRO GUEVARA RN Pt has multiple dark purple bruises on abdomen & upper legs. She states, "I did that to myself." Pt seen at breakfast pinching herself. Addendum: 09/23/16 at 1454 by JOSE ALEJANDRO GUEVARA RN Pt upset with CM this afternoon for "threatening me." "She told me is I don't go to groups the insurance might not pay for my stay....They're changing my insurance at the end of the month....They're going to boot me out on my ass."
--- NOTE | 2016-09-23 12:11 | PROG NOTE ---
[address] [address] PROGRESS NOTE PATIENT: ARCHANA PAYNE : 1940 MR#: [id number] ADMIT: 09/16/2016 JOB ID: [id number] DATE: 09/23/2016 CHIEF COMPLAINT: "I am thinking clearer, but I am still worried that you are going to kick me out here. I don't think my son is happy." This is per patient report. HISTORY OF PRESENT ILLNESS: As stated above, the patient continues to perseverate with significant concerns about financial status, apprehensive worry in reference to her medical status. She made repeated commentaries of feeling out of her mind and inability to function. I have discussed with the treatment team this morning of the need for a skills assessment for possible access of independent living in the future and note, however, this will be a lengthy process. OBJECTIVE: On mental status exam, the patient is quite worrisome nature. She stands up, sits down repeatedly throughout the course of conversation. She makes repeated references of abdominal pain and the inability to urinate and defecate. Her mood is highly anxious. Her affect is elevated. Her thought process shows evidence of distractibility throughout. She is loose and disorganized. Her thought content: She denies any evidence of current suicidal ideation, but admits to a state of hopelessness and despair, indicating that she is just taking up space. She denies any active hallucinations, delusions. She was alert, oriented to time and place. Her attention and concentration intact. Her memory intact in the short term, assisted, recent. Insight and judgment are fair to poor. PHYSICAL EXAM: Vital signs of current. Her temperature is 35.8, pulse 111, respirations 17. BP 116/72. MEDICATION REVIEW: Includes: 1. Seroquel 25 mg b.i.d. 2. Metformin 500 mg b.i.d. 3. BuSpar 30 mg b.i.d. 4. Celexa 40 mg daily. 5. Lisinopril 10 mg daily. 6. Macrobid 100 mg b.i.d. 7. Tramadol 50 mg q.4 h. p.r.n. ASSESSMENT: AXIS I: 1. Generalized anxiety disorder. 2. Panic disorder without agoraphobia. 3. Cognitive disorder, not otherwise specified, rule out dementia with agitation. AXIS II: Deferred. AXIS III: 1. History of urinary tract infection, resolved. 2. History of type 2 diabetes. 3. History of hypertension. 4. History of prolapsed uterus. AXIS V: Global Assessment of Functioning of current 30. PLAN: 1. Recommendations for skills-based assessment from occupational therapy in preparation for assisted living. 2. Recommendations for continuation of all medications with titration of Seroquel to 50 mg b.i.d. 3. Consideration of further titration of Celexa based on the patient's continuation of chronic anxiety and perseveration.
--- NOTE | 2016-09-23 14:34 | NUR ---
Evaluation completed. Please go to "Notes" then click on "Assessments and Notes" (bottom left corner of screen). Then select appropriate discipline tab on top of screen.
--- NOTE | 2016-09-23 14:57 | NUR ---
Manufacturing Technician./ c.m. S.:"I didn't sleep well because of nightmares. I'm fighting demons! They are my family." O.: met with pt. in her room. She complained about poor sleep last night due to nightmares. She didn't tell doctor about it. She complained about lack of attention from staff and her family. She couldn't tell if she had SI. She denied HI. She rated depression at 0-1/10. She admitted feeling anxious and rated anxiety at 8/10. She was able to sit on her bed while talking to the automotive service writer. Pt.'s son called and talked to the automotive service writer after his phone conversation with his mother. Transformer Maker informed pt.'s son about doctor's advice to tell pt. luis about of her best friend. Transformer Maker also was able to clarify with pt.'s son some of patients complains and comments about staff. We talked about possible discharge in a few days if pt. is getting better. A.: pt. is isolative, very dramatic but more reality oriented, constantly seeking attention. P.: monitor behavior, provide safety in the unit, monitor meds intake; follow care plan.
--- NOTE | 2016-09-23 17:02 | NUR ---
Observations [id number] Pt was awake resting in bed upon start of shift. She is still very indecisive regarding any questions or decision that need to be made. She did spend more time in the common areas, walking the halls, pacing back and forth. Pt did attend Community Meeting and participated, as well as did morning reading. Pt later stated that "It took me a lot of concentration to read that". Pt appeared to be referring to the fact that it was outside of her comfort zone, in which this advertising copy writer acknowledged and thanked her for sharing. Pt attended all meals, but struggles to eat and takes a long time to finish her meals, eating an average of 60%. She did take a shower today with the request that staff help her. Pt presented as frustrated, confused, and aggravated for much of the day. She was observed every 15 minutes of shift as directed.
[2016-09-23] MEDS: Zolpidem 5 mg Tablet for FEMALE or >65YO PO PRN (22:25)
--- NOTE | 2016-09-23 22:41 | NUR ---
Nursing note: evening shift Patient pacing in hallway in afternoon and irritable on approach. Patient states "I am trying to collect my thoughts" then perseverates about about "Paying the bill" Patient did eat about 50% of dinner very slowly with several somatic concerns of her stomach and bladder. Patient was visited by son and daughter in law. Son had previously spoken to Dr/counselor/nursing about relating news that a close friend of patient had recently . Son did tell patient about her friend's . Patient's only response was "God bless her" then proceeded with her own concerns of hospital bills, insurance and paperwork. Special Duty Nurse moved some of the paperwork in patient white folder to patient chart at son's request. Patient is perseverating and feeling overwhelmed to have so many papers to complete. Special Duty Nurse encouraged patient to only set one goal for the day. Patient was more cooperative with HS medications, and retired to bed. Addendum: 09/23/16 at 2252 by GLORIA RUSSELL RN addendum/ prn medication Patient received Ambien 5 mg po at 2225 to help her fall asleep.
--- NOTE | 2016-09-24 03:04 | NUR ---
Observations 1900 to 0700 Pt was anxious but a little improved. Pt was visiting with her Son when my shift started. Pt was still confused on the floor. Pt had a hard time sleeping at night. Pt first appeared asleep at 23:15 and was observed every 15 minutes through the night as directed.
--- NOTE | 2016-09-24 05:36 | NUR ---
Sleep 11p-7a Adequate sleep through the night with no noted distress or awakening per protocol checks. She has remained asleep since 2314 for over 6 hours.
[2016-09-24] MEDS: BusPIRone 15 mg Dividose Tablet PO SCH ×2 (08:37→20:30)
[2016-09-24] MEDS: Nitrofurantoin Monohyd-Macrocryst 100 mg Capsule PO SCH ×2 (08:39→20:00)
[2016-09-24] MEDS: Nystatin 100,000 Unit/Gm 15 Gm Powder TOPICAL SCH ×2 (08:40→20:30)
--- NOTE | 2016-09-24 14:04 | NUR ---
Nursing Day Shift- S/O- "I'm a mess. Why Don't you just open the door and let me out of here!" (stated at 10 AM while Pt. was standing in her room with her shirt half on and her pants pulled down 2-3 inches.) Pt. had a bowel movement in the toilet, then went and laid in her bed without wiping. She cleaned herself up with staff direction, and her bed was changed. She was very slow to take her AM medications. She denied thoughts of self harm, anxiety or suicidal thoughts, and rated her anxiety as 8/10. She eat a small breakfast after sleeping well, then returned to her room. A- Increased helpless behavior and isolating with pending discharge. Pt. continues to seek out attention for displays of helplessness. P-Cont to encourage independence and reward positive behaviors. Cont. bHTP.
--- NOTE | 2016-09-24 17:39 | NUR ---
[facility] Day Shift Pt maintained behavioral control throughout the shift, but has difficulty maintaining emotional control. Pt affect appears flat. Pt spends most of the shift pacing the unit, resting in her room, or attempting to engage in unit activities. Pt is appropriate with staff and peers when active on the unit, despite pt inconsistent affect. Pt expresses a considerable amount of self-deprecation and negativity during interactions with staff and peers. Pt occasionally observed superficially striking her head against her bedroom door. Pt did not attend community meeting or group activities throughout the shift. Pt attended breakfast, but declined to eat more than 10%. Pt declined to eat lunch or dinner.
--- NOTE | 2016-09-24 20:57 | NUR ---
NURSING NOTE [id number] Mood: "this is it, this is IT! Oh it's really it!" *sighs* Affect: depressed, negative, when approached by staff she becomes overwhelmed in a dramatic fashion Behavior: lying still in her bed for much of the shift despite staff's attempts to get her to come out and join the milieu, she did eventually come out to dinner after much coaxing. Ate about 25% of her meal. She refused her scheduled Metformin and offer of PRN Vistaril at dinner and then later her HS medications as well (perseverating on the choice of taking medications for nearly 30 mins each time, with this policy writer checking in on her several times to see if she had come to a decision) Thought processes: pt. continues to struggle with decision-making. When presented w/an option of any kind she becomes very overwhelmed and insists she cannot do it (whether it be answer a phone call, come to dinner, take medicine etc.) She cannot provide a reason why she cannot do these things. She is anxious and perseverative. Endorsed depression. Passive SI w/no plan or intent.
--- NOTE | 2016-09-25 02:41 | NUR ---
Observations 1900 to 0700 Pt was anxious and pressured. Pt was still confused on the floor. Pt had a hard time sleeping at night as usual. Pt first appeared asleep at 22:00 and was observed every 15 minutes through the night as directed.
--- NOTE | 2016-09-25 05:03 | NUR ---
nursing, nights, 11-7 s/o- has appeared to sleep after 2200. is restless and will appear awake at times. when offered assistance she will stare but give no response. assessed q 15 minutes. a- inadequate sleep, difficulty expressing needs, no apparent distress. p- monitor behavior/emotional state, quality, times and amount of sleep, use and effect of medication. haroldo
[2016-09-25] MEDS: Nitrofurantoin Monohyd-Macrocryst 100 mg Capsule PO SCH ×2 (08:00→10:00)
[2016-09-25] MEDS: Nystatin 100,000 Unit/Gm 15 Gm Powder TOPICAL SCH (08:30)
[2016-09-25] MEDS: BusPIRone 15 mg Dividose Tablet PO SCH ×2 (08:30→10:00)
--- NOTE | 2016-09-25 10:08 | PCM.DIMED ---
Discharge Instructions Date of Service Sep 25, 2016 Dates of Hospitalization Sep 16, 2016 at 18:49 Discharge Diagnosis Discharge Diagnosis Dementia with behavioral disturbance Major Depression Recurrent Severe nonpsychotic Generalized Anxiety Diet No restrictions Activity No restrictions Good Montgomery DO Sep 25, 2016 10:08
[2016-09-25] MEDS ORDERED: LISI-610 PO (10:11)
[2016-09-25] MEDS ORDERED: BUSP30TA2 PO (10:11)
[2016-09-25] MEDS ORDERED: QUET50TA55 PO (10:11)
[2016-09-25] MEDS ORDERED: NYST1POW25 TOPICAL (10:11)
[2016-09-25] MEDS ORDERED: METF500T PO (10:11)
[2016-09-25] MEDS ORDERED: CITA40TA PO (10:11)
[2016-09-25] MEDS ORDERED: NITR100 PO (10:11)
--- NOTE | 2016-09-25 10:40 | PROG NOTE ---
[address] [address] PROGRESS NOTE PATIENT: ARCHANA PAYNE : 1940 MR#: [id number] ADMIT: 09/16/2016 JOB ID: [id number] DATE: 09/24/2016 CHIEF COMPLAINT: "I know you are just going to kick me out of here." This per patient report. HISTORY OF PRESENT ILLNESS: As stated above, the patient made open identification of fears of being discharged to her family and the burden that she continues to present. She reportedly did have difficulties with bowel incontinence and identified that she is basically falling apart on the unit. She made open identification that she feels that the medications are helping her with basis of reality and keeping her on track but she openly identified that she is fearful about going back to her son's home and becoming a burden. I have discussed that I have place calls with her son to request planning for discharge. OBJECTIVE: On mental status examination, the patient is a quite anxious. She makes intermittent eye contact. She paces throughout the course of conversation. She makes open identification of her factors of anxiety and worry about the financial status of reimbursement. Her speech is of normal tone, frequency and volume. Her mood is neutral. Her affect is congruent. Her thought process shows no evidence of random flight of ideas, loose or disconnected thinking. Her thought content. She continues to perseverate and is very circumstantial. She denies any evidence of suicidal, homicidal ideation. She openly identifies that she feels that it would be better for everyone if she were but openly states that she would never do anything to take her life. She denies any active hallucinations, delusions. She was alert, oriented to time, place and person. Her memory showed significant delays in the immediate and remote. Her insight and judgment are deemed poor. PHYSICAL EXAM: Vital signs of current. Temperature is listed on September 23 at 35.8, pulse 111, respirations 17, BP 116/72. MEDICATION REVIEW: Includes: 1. Seroquel 50 mg b.i.d. 2. Metformin 500 mg b.i.d. 3. BuSpar 30 mg b.i.d. 4. Celexa 40 mg q. a.m. 5. Lisinopril 10 mg q. a.m. 6. Macrobid 100 mg b.i.d. ASSESSMENT: AXIS I 1. Dementia with behavioral disturbance. 2. Major depressive disorder, recurrent type, severe, nonpsychotic. 3. Generalized anxiety disorder. AXIS II Cluster B personality features. AXIS III 1. History of type 2 diabetes. 2. History of prolapsed uterus with urinary incontinence. 3. History of chronic pain. AXIS IV Stressors are noted for transition of life, financial disturbance. AXIS V Global assessment of functioning of current 35. PLAN: 1. Recommendations for calls placed with the son to talk about probable discharge and access of additional services in the community including [facility] worker referral. 2. Continuation of mental health services including referrals to hospice case manager, individual therapy and medication management at local options including [facility]. 3. Recommendations will be given to the son of access of care for geriatric access point of service tomorrow.
[2016-09-25 13:25] VITALS: BP 146/91; PULSE 109; RESP 18
--- NOTE | 2016-09-25 13:54 | DIS ---
[address] [address] DISCHARGE SUMMARY PATIENT: ARCHANA PAYNE : 1940 MR#: [id number] ADMIT: 09/16/2016 JOB ID: [id number] DIS: DATE: 09/25/2016 ADMITTING DIAGNOSES: AXIS I: 1. Major depressive disorder, recurrent type, severe, nonpsychotic. 2. Generalized anxiety disorder. 3. Rule out cognitive disorder, not otherwise specified. AXIS II: Deferred. AXIS III: 1. History of urinary tract infection. 2. History of type 2 diabetes. 3. History of hypertension. AXIS IV: Stressors are noted for real life situations and transitions, financial distress. AXIS V: Global Assessment of Functioning of current 35. DISCHARGE DIAGNOSES: AXIS I: 1. Dementia with behavioral disturbance. 2. Major depressive disorder, recurrent type, severe, nonpsychotic. 3. Generalized anxiety disorder. AXIS II: Deferred. AXIS III: 1. History of urinary tract infection. 2. History of type 2 diabetes. 3. History of hypertension. AXIS IV: Stressors are noted for the same with transition of housing, including possible referrals to assisted living. AXIS V: Global Assessment of Functioning of current 40. REASON FOR ADMISSION: The patient was a 76-year-old female admitted through the emergency room with evidence of increasing depression, suicidal ideation, with plan and intent to overdose. During hospital course, patient did have significant decompensation with prolonged stay with regressive behaviors, pacing, and rigidity of thought. The patient showed increasing difficulties with dementia, and discussions were held with the son on the day of discharge that the patient has shown a significant pattern of behaviors, including sundowning syndrome, increasing difficulties with decompensation and care of self during her course of hospitalization, and it was felt that the patient displaying significant cognitive decline. HOSPITAL COURSE: During hospital course, the patient was treated with medications, including Celexa titrated to 40 mg daily, BuSpar 30 mg b.i.d., Seroquel 50 mg b.i.d., and there was significant improvement with the patient's overall mood status, but significant decline of daily living skills. The patient did undergo an occupational therapy evaluation which showed no significant deviation, but the patient certainly displayed evidence of factors of learned helplessness. Throughout hospital course, it was felt the patient was showing significant classic signs of decompensation on the inpatient unit. The son was informed that the patient would do best if she were back in the family home. The son did identify that he is concerned about future difficulties, and I have discussed with him about potential referrals for initiation of [facility], an in-home based care provider system that works with access of entry through the [facility] in [place]. In addition, discussion was held with the son on the day of discharge the importance of obtaining a complex case manager and prescriber through local community providers. In reviewing additional history, the patient did have significant complicated medical history, including difficulties with urinary and bladder incontinence. The patient was encouraged to follow up with a primary care physician in [place] for possible evaluation and benefits of a supportive device such as a . In addition, throughout hospital course, laboratory data was collected with noted hemoglobin A1c at 7.4. Her dose of metformin was titrated from original doses at 250 mg in the morning, 500 mg q.h.s. to 500 mg b.i.d. She also had updated laboratory data collection which showed no evidence of abnormalities for a CBC with differential, chemistry panel. She did have a significant diagnosis of a UTI at the point of admission and remained on antibiotic therapy for such. CONDITION AT TIME OF DISCHARGE: Patient's mental status exam: She was cooperative, polite. She made a significant derogatory identification that she felt that she was being kicked out of the hospital. However, she was and encouraged to identify that we are attempting to reunite her with her family units for additional support. She openly identified that she feels that she is a burden upon them, and I have identified that services will be referred, including a [facility] worker and additional services including complex case manager through local community in mental health and prescriber. Her speech was of normal tone, frequency, and volume. Her mood was anxious. Her affect was congruent. Her thought process showed no evidence of racing thoughts, flight of ideas, loose or disconnected thinking. Her thought content: She denied any evidence of current suicidal, homicidal ideation. No active hallucinations or delusions. She was alert. Orientation to place and time. Her memory was significantly impaired with great difficulties of recall with MOCA scores in the upper teens. Her insight and judgment were deemed poor. DISCHARGE PLANS: Include. 1. Recommendations to discharge to care of the son. 2. Continuation of medications including Seroquel 50 mg one b.i.d. one month supply, no refills. Reason for usage of mood stabilizer. 3. Continuation of Celexa 40 mg q.a.m., one month supply, no refills. Reason for usage antidepressant. 4. Continuation BuSpar 30 mg b.i.d., one month supply, no refills. Reason for usage antianxiety. 5. Continuation of lisinopril 20 mg daily, one month supply, no refills. Reason for usage antihypertensive. 6. Continuation of metformin 500 mg b.i.d., one month supply, no refills. Reason for usage diabetes. 7. Continuation of followup with outpatient care providers through local community health organizations, including [facility] for both case management and medication management. inverter and clipper will be coordinating. 8. Referrals to primary care physicians in [place]. Calls were placed with [facility]. Unfortunately, they are currently full, and the son will be informed to notify additional resources in the community for followup care as related to the patient's history of UTI and the need for further interventions, including possible fitting for . 9. Follow up with calls to be placed with the [email or web address] system for provision assistance for the family members in dealing with the patient's limited capabilities.
--- NOTE | 2016-09-25 15:29 | NUR ---
Nursing Discharge- Planned discharge to home today at 1600. Pt's son to provide transportation and housing. Medications were faxed to [facility] as the Pt's son had requested. The Pt. continued to show signs of increased anxiety and resistance to discharge today. She declined to sign the discharge instructions and follow up plans. All information was explained to her. She eat 25% breakfast and lunch with encouragement. Pt. was able to complete half of her safety plan. OT cleared Pt. for discharge.
--- NOTE | 2016-09-25 17:39 | NUR ---
UNIT DISCHARGE Pt. discharged from unit at 17:30, accompanied by her son and [id number]. This rewriter spoke went over discharge paperwork and follow-up instructions with both the patient and her son and gave the paperwork to her son.
[2016-12-09] MEDS ORDERED: PREC VG (17:28)
[2016-12-09] MEDS ORDERED: PREC VAGINAL (17:28)
[2016-12-09] MEDS ORDERED: LORA-302 PO (17:28)
[2016-12-09] MEDS ORDERED: CITA20TA PO (17:28)
[2016-12-09] MEDS ORDERED: LISI-567 PO (17:28)
[2016-12-09] MEDS ORDERED: METF500T4 PO (17:28)
[2016-12-09] MEDS ORDERED: QUET50TA PO (17:28)
[2016-12-09] MEDS ORDERED: ATOR20TA PO (17:29)
[2016-12-09] MEDS ORDERED: CEPH500C PO (17:29)
== END 2016-09-25 17:30 | disposition home or self-care (01) | DRG 884 ==
LOC: SED 04:13 → MHC 18:49
PROVIDERS: ADMIT Psychiatry & Neurology Psychiatry; ATTEND Psychiatry & Neurology Psychiatry
DX: F03.91 Unspecified dementia, unspecified severity, with behavioral disturbance (principal); F33.2 Major depressive disorder, recurrent severe without psychotic features; R45.851 Suicidal ideations; F41.1 Generalized anxiety disorder; Z59.9 Problem related to housing and economic circumstances, unspecified; F41.0 Panic disorder [episodic paroxysmal anxiety]; Z87.440 Personal history of urinary (tract) infections

== ENCOUNTER 2016-12-10 05:37 | Day surgery (SDC) | payer MEDICARE, OTHER ==
[~2016-12-10] VITALS: Ht 157.5 cm; Wt 85.8 kg
[2016-12-10] VITALS (16 sets, daily range): BP systolic 95–137; BP diastolic 32–69; PULSE 63–90; RESP 10–20; O2SAT 92–100
[2016-12-10] MEDS: Lactated Ringer's 1,000 ML IV SCH ×3 (05:00→07:45)
[~2016-12-10 05:37] MED LIST: ATOR20TA PO; BUSP30TA2 PO; CEPH500C PO; CITA20TA PO; LISI-567 PO; LORA-302 PO; METF500T4 PO; PREC VAGINAL; QUET50TA PO
[2016-12-10] MEDS ORDERED: Ondansetron 2 mg/mL 2 mL Inj ONE (05:38)
[2016-12-10] MEDS ORDERED: Morphine PF 1 mg/mL 10 mL Inj ONE (05:38)
[2016-12-10] MEDS ORDERED: Glycopyrrolate 0.2 MG/ML 1mL Inj ONE (05:38)
[2016-12-10] MEDS ORDERED: Rocuronium 10 mg/mL 5 mL Inj ONE (05:38)
[2016-12-10] MEDS ORDERED: fentaNYL-PF 50 mCg/mL 2 mL Inj ONE (05:38)
[2016-12-10] MEDS ORDERED: Furosemide 10 mg/mL 4 mL Inj ONE (05:38)
[2016-12-10] MEDS ORDERED: Neostigmine 1 mg/mL 10 mL Inj ONE (05:38)
[2016-12-10] MEDS ORDERED: Phenylephrine/NS-PF 100 mCg/mL 5 mL Syringe IVPUSH ONE (05:38)
[2016-12-10] MEDS ORDERED: CeFAZolin Inj 2 gm / 50mL D5W IV ONE (05:45)
[2016-12-10] MEDS ORDERED: Dextrose 10% 250 ML IV PRN (06:00)
[2016-12-10] MEDS ORDERED: CEFAZOLIN IV SCH (06:00)
[2016-12-10] MEDS ORDERED: DEXTROSE 5% IV SCH (06:00)
[2016-12-10] MEDS ORDERED: Phenazopyridine 97.5 mg Tablet PO ONE (06:00)
[2016-12-10] MEDS ORDERED: PHA MIX IV SCH (06:00)
--- NOTE | 2016-12-10 07:44 | PCM.HPANE ---
Patient Data Surgeon Admitting Provider: Attending Provider:Robert Esqueda MD Primary Care Physician:Hermelindo Smith DO Other Provider:Noel Deluna Anesthesia Reason for Visit Uterovag Prolapse,Cystocele,Rectocele,Stress Incon Ht/WT & BMI Height (Feet): 5 Height (Inches): 2.00 Weight (Kilograms): 84.1 Body Mass Index 34.00 Allergies Coded Allergies: sertraline (Verified Adverse Reaction, Severe, Anxiety, 12/09/16) "I go bananas" Uncoded Allergies: SEAFOOD (Allergy, Unknown, UNKNOWN, 12/09/16) Past Anesthesia History Anesthesia History: Denies:: Anesthesia Reactions, Malignant Hyperthermia Diabetes History Hx Diabetes?: Yes Type of Diabetes: Type II Glycemic Control: Oral Medication Current Bedside Blood Glucose: 117 MRSA MRSA: No Medications Hypertension Medication: Yes (LISINOPRIOL) Home Meds Incl Beta Maria Esther: No Active Scripts Buspirone 30 Mg Kuszlw27 Mg PO BID #60 TABLET Ref 0 Prov:Kayden Hyman DO 09/25/16 Reported Medications Cephalexin 500 Mg Siazien931 Mg PO HS #40 CAPSULE Ref 0 12/09/16 Atorvastatin (Lipitor)20 Mg Deqpft93 Mg PO DAILY Ref 0 12/09/16 Estrogens Conjugated (Premarin)1 Gm Vagcream0.5 Gm VAGINAL 2X/WEEK #1 TUBE Ref 0 12/09/16 Lorazepam (Ativan)0.5 Mg Tablet0.5 Mg PO BID PRN For Anxiety Ref 0 12/09/16 Quetiapine Fumarate (Seroquel)50 Mg Ahsnom23 Mg PO HS Ref 0 12/09/16 Metformin 500 Mg Vstwcf401 Mg PO DAILY Ref 0 12/09/16 Lisinopril 20 Mg Coccyd18 Mg PO DAILY 30 Days Ref 0 12/09/16 Citalopram Hydrobromide (Celexa)20 Mg Kvctjx73 Mg PO DAILY Ref 0 12/09/16 Discontinued Reported Medications Estrogens Conjugated (Premarin)1 Gm Vagcream1 Gm VG DAILY #1 TUBE Ref 0 12/09/16 Discontinued Scripts Nystatin 1 Each Powder.ea.1 Applic TOPICAL BID 30 Days Prov:Kayden Hyman DO 09/25/16 Metformin (Glucophage)500 Mg Ankikv733 Mg PO BIDWM #60 TABLET Prov:Kayden Hyman DO 09/25/16 Quetiapine Fumarate 50 Mg Qargny19 Mg PO BID #60 TABLET Ref 0 Prov:Kayden Hyman DO 09/25/16 Citalopram Hydrobromide (Celexa)40 Mg Qltuqj48 Mg PO DAILY #30 TABLET Ref 0 Prov:Kayden Hyman DO 09/25/16 Lisinopril (Zestril)10 Mg Womszp22 Mg PO DAILY #30 TABLET Prov:Kayden Hyman DO 09/25/16 Nitrofurantoin Monohyd/M-Cryst (MacroBid)100 Mg Rorwkbz421 Mg PO 08,20 5 Days Prov:Kayden Hyman DO 09/25/16 History History of ENT Problems?: No HEENT History: Denies:: Abnormal Airway Cataracts Difficult Intubation Dysphagia Glaucoma Hearing Problem Sinus Problem TMJ Denture Type: None Teeth Condition: Within Normal Limits Hx of Heart Problems?: Yes Cardiovascular History: Positive for:: Hypertension (HYPERLIPIDEMIA) Denies:: Congestive Heart Failure Heart Murmur Hx of Respiratory Problem?: No Respiratory History: Denies:: Tuberculosis Use of C-PAP Machine Hx Neurologic Problems?: Yes Neurological History: Positive for:: CVA Dementia Hx of GI Problems?: Yes Other GI Pertinent History: S/P GASTRIC SLEEVE Hx of Problems?: Yes Genitourinary History: Positive for:: Urinary Tract Infection (RECURRENT) Female Hx: Denies:: Currently Skin History: Denies:: History Skin Disorders? Pressure Ulcers Hx Musculoskeletal Problems?: Yes Musculoskeletal History: Positive for:: Musculoskeletal Trauma (S/P KNEE ARTHROSCOPY) Hx of Psycho/Social Problems?: Yes Psycho Social History: Positive for:: Anxiety (PANIC DISORDER) Hx Depression Denies:: Bipolar Disorder Suicide Attempt ([facility]ENT [facility] SUICIDAL IDEATION) Hx Surgeries?: Yes (BHAVESH,KNEE SCOPE,GASTRIC SLEEVE,LT SO) Hx Any Other Health Problems?: Yes Other History: Denies:: Cancer Endocrine Disease Hospitalization Thyroid Disease History Blood Transfusions: Positive for:: Accept Blood Products? Denies:: Blood Transfusions Hx Diabetes: YesBedside Blood Glucose: 117 Hx Alcohol Use: NoHx Substance Use: No Smoking Status: Unknown if Ever Smoker Have You Smoked inLast 12 mo: No Stop/Bang S-Snoring: Do You Snore Loudly: No T-Tired: feel tired, fatigued: No O-Obsered: Observed not breath: No P-Blood Pressure: treated: Yes B- Body Mass Index > 35 kg/m2: No A- Age over 50: Yes N- Neck Large Circumference: No G- Gender Male: No THOMAS Total Score: 2 Risk Assessment Category Category 1A: Patient has history of documented sleep apnea, and HAS NOT received any narcotic, sedative or anesthesia administration during this stay. Category 1B: Patient has history of documented sleep apnea, and HAS received any narcotic , sedative or anesthesia administration during this stay Category 2: Patient has SUSPECTED Obstructive Sleep Apnea, and HAS received any narcotic , sedative or anesthesia administration during this stay. Category 3: Patient has SUSPECTED Obstructive Sleep Apnea and HAS NOT received narcotic, sedative or anesthesia administration during this stay. Category 4: Outpatient in Procedural Areas with known sleep apnea or who screen positive for High Risk via the STOP/BANG questionnaire. Exam Exam Vital Signs Vital Signs Date Time Temp Pulse Resp B/P Pulse Ox O2 Delivery O2 Flow Rate FiO2 12/10/16 06:55 36.1 90 16 137/67 99 Room Air General Appearance: Alert, Oriented X3, Cooperative, No Acute Distress HEENT/AIRWAY: MP 2 Lungs: Clear to Auscultation Heart: Exam Unremarkable Meds/Labs/Diagnostics Admission Meds Current Medications Lactated Ringer's (Lr) 1,000 ml @ 120 mls/hr Q8H20M IV Last administered on 06:18; Start 12/10/16 at 05:00; Stop 12/10/16 at 13:19 Phenazopyridine HCl (Azo Standard) 2 tab PREOP ONCE PO Last administered on 06:50; Start 12/10/16 at 06:00; Stop 12/10/16 at 06:01; Status DC Bedside Blood Glucose: 117 Plan Impression Patient chart reviewed, patient interviewed and anesthestic plan with risks, benefits, and alternatives discussed, and informed consent obtained. ASA Physical Status: ASA2 Mod Systemic Disease Anesthetic Plan: GA, SAB Bene/Risks/Altern/Consents: Yes HP Complete Prior to Induction: Yes Chau Landrum MD Dec 10, 2016 07:19
[2016-12-10] MEDS ORDERED: Lactated Ringer's 500 ML IV PRN (08:18)
[2016-12-10] MEDS ORDERED: Lactated Ringer's 1,000 ML IV SCH (08:18)
[2016-12-10] MEDS ORDERED: HYDROmorphone 1 mg/mL Inj IVPUSH PRN (08:20)
[2016-12-10] MEDS ORDERED: Ondansetron 2 mg/mL 2 mL Inj IVPUSH PRN ×2 (08:20→12:50)
[2016-12-10] MEDS ORDERED: MetoCLOpramide 5 mg/mL 2 mL Inj IVPUSH PRN ×2 (08:20→12:50)
[2016-12-10] MEDS ORDERED: Dexamethasone 4 mg/mL Inj IVPUSH PRN (08:20)
[2016-12-10] MEDS ORDERED: EPHEDrine Sulfate 50 mg/mL Inj IVPUSH PRN (08:20)
[2016-12-10] MEDS ORDERED: Phenylephrine 10,000 mCg/mL Inj IVPUSH PRN (08:20)
[2016-12-10] MEDS ORDERED: fentaNYL-PF 50 mCg/mL 2 mL Inj IVPUSH PRN (08:20)
[2016-12-10] MEDS ORDERED: Lidocaine 1%-Epi 1:100,000 20 mL Inj INJ ONE (08:44)
[2016-12-10] MEDS ORDERED: Gentamicin 40 mg/mL 2 mL Inj IRRIGATION ONE ×2 (08:45→09:45)
[2016-12-10] MEDS ORDERED: Lactated Ringer's 1,000 ML IV ONE ×2 (08:47→12:23)
--- NOTE | 2016-12-10 12:49 | PCM.ANEP1 ---
Post Anesthesia PACU Phase 1 Assessment Vital Signs Vital Signs Date Time Temp Pulse Resp B/P Pulse Ox O2 Delivery O2 Flow Rate FiO2 12/10/16 06:55 36.1 90 16 137/67 99 Room Air Anesthetic Administered: GA, SAB Level of Alertness: Sleepy, easy to arouse Pain: No Nausea or Vomiting: No CV Function & Hydration Stable: Yes Airway Device: Oxygen Delivery: Simple Mask Lungs: Clear to Auscultation PACU Phase 2 Assessment Complications: No Patient Instructions Provided: N/A Chau Landrum MD Dec 10, 2016 12:49
[2016-12-10] MEDS ORDERED: diphenhydrAMINE 25 mg Capsule PO PRN (12:50)
[2016-12-10] MEDS ORDERED: Alum-Mag Hydrox-Simeth 30 mL Suspension PO PRN (12:50)
[2016-12-10] MEDS ORDERED: LORazepam 0.5 mg Tablet PO PRN (13:15)
[2016-12-10] MEDS ORDERED: Insulin Human REGular 300 Unit/3 mL Inj SUBQ SCH (14:30)
[2016-12-10 14:49] LABS: APPEARANCE,URINE CLEAR (CLEAR,HAZY); COLOR,URINE YELLOW (YELLOW); OCCULT BLOOD,URINE NEGATIVE (NEGATIVE); UROBILINOGEN,URINE NORMAL (NORMAL)
--- NOTE | 2016-12-10 15:00 | NUR ---
Admit Patient admitted into room 1012 from OR in a rney and transfered onto bed with slider board and a max assist. Patient is drowsy but easy to arouse. Transported on room air and O2 Sats in low 90s. Patient denies all pain including chest pain, SOB, and N/V. Does report that she can tell she is breathing shallow. Continuous pulse oximeter applied, SCDs in place, IV fluids infusing. Oriented to room. Call light within reach. Hourly rounding. Addendum: 12/10/16 at 1519 by HARRISON HERRERA RN Vaginal packing in place. Notable sanguinous drainage present upon transfer from rney to bed. Mouna pad changed. Patient denied perineal pain.
--- NOTE | 2016-12-10 15:03 | NUR ---
Respiratory Per report from OR, patient desats while sleeping. Patient admitted into room on room air with O2 Sats in low 90s. Patient is drowsy and once asleep O2 Sat drops to 89%. Oxygen applied via nasal canula at 3L. O2 Sats 97-100%. Continuous pulse oximeter in place. Continuing to monitor oxygen requirements.
[2016-12-10] MEDS: 0.9% Sodium Chloride 1,000 ML IV SCH ×2 (15:33→23:24)
[2016-12-10] MEDS: Acetaminophen IV 1,000 MG in IV Premix 1 EACH IV SCH ×2 (15:34→18:50)
--- NOTE | 2016-12-10 16:32 | PCM.SURGOP ---
Surgical Operative Report Date of Service: Dec 10, 2016 Pre Operative Diagnosis 1. POPQ stage 4 Uterovaginal prolapse 2. Stress incontinence Post Operative Diagnosis 1. POPQ stage 4 Uterine prolapse/enterocele/cystocele 2. POPQ stage 2 rectocele 3. Deficient pubovesical/pubocervical fascia 4. Stress incontinence Procedure: 1. vaginal hysterectomy with right salpingoophorectomy 2. anterior repair with Xenform biologic graft augmentation. 3. posterior colpoperineorrhaphy 4. high uterosacral ligament vaginal vault suspension, cystoscopy, enterocele repair 5. TVT-obturator sling Surgeon and Roll Off Driver: Surgeon: Robert Esqueda MD Assistants: Dexter Neves MD Indication for Procedure Her assessment to date includes the followin. Uterovaginal prolapse, incomplete N81.2 (618.2): 2. Cystocele, midline N81.11 (618.01): 3. Rectocele N81.6 (618.04): 4. stress incontinence N39.41 (788.31): We consented her for a vaginal hysterectomy with possible BSO, anterior repair with biologic graft augmentation. posterior repair with possible biologic graft augmentation. high uterosacral ligament vaginal vault suspension. enterocele repair and TVT-O sling. She and her family have decided against an obliterative procedure. The patient signed the consent form. She agreed with the risks, benefits, and alternatives to surgery. The risks included but not limited to recurrence or persistence of prolapse, recurrence of persistence of incontinence, development of voiding dysfunction, development of urinary urgency, urgency incontinence, frequency, and need for intermittent self-catheterization or prolonged indwelling catheterization, injury to other organs including bladder, bowel, nerves or blood vessels. Need for blood transfusion, need for temporary colostomy or urinary stenting. Development of vaginal scarring, dyspareunia, defecatory dysfunction, recurring pain, hematoma formation, urinary tract infection, cellulitis, necrotizing fascitis, and medical risks including myocardial infarction, stroke or VTE. She also understood the FDA warnings associated with the use of vaginal mesh (dysparunia, vaginal erosion, erosion into bowel/bladder/urethra, requiring further surgery to correct these complications). The patient understood the risks and benefits and consented to surgery. Findings: see above Procedure Details SURGICAL TECHNIQUE: The patient was brought to the operating room and was given a duramorph spinal anesthetic. She was then placed under general anesthesia. She was prepped and draped in the normal fashion for vaginal surgery with the legs in Yellofin stirrups. She was given a dose of IV ancef intraoperatively. She received 200 mg of oral pyridium 30 min prior to surgery. 1. Vaginal Hysterectomy and right salpingoophorectomy: Complete uterine prolapse (POPQ stage 4 was noted). EUA also revealed an elongated cervix. Lidocaine 0.5% with 1:200,000 of epinephrine was infiltrated pericervically. A pericervical incision was made with a scalpel. Anteriorly, the bladder was sharply dissected off the cervix. Posteriorly, the cul de sac was entered with Sharp dissection. The bowels were packed with a mini-laparotomy sponge. The uterosacral ligaments were bilaterally clamped, divided and then tied in a transfixion fashion with 0-vicryl suture. Anteriorly, the Uterovesical peritoneum was entered with sharp dissection and the bladder was retracted upward with a right-angle retractor. The uterine vessels were clamped, staying as medial as possible to avoid the ureters, ligated then tied with 0-vicryl suture. The uterine body was delivered posteriorly. The utero-ovarian ligaments were clamped bilaterally, coagulated with Ligasure Impact system, ligated and then tied using 0-Vicryl suture. The right ovary and tube appeared normal. She had a previous left salpingoophorectomy. Next we proceeded with right Salpingoophorectomy. The right ovary and tube were grasped with [place] clamp. A hysterectomy Clamp was placed along the vascular base. This was coagulated, then ligated with Ligasure Impact. The Pedicle was then tied using 0-vicryl suture. The uterus/cervix, right tube and ovary were sent to pathology. It was noted that the pedicles and cuff were hemostatic after some cauterization. 2. High uterosacral ligament vaginal vault suspension, cystoscopy and enterocele repair: Mini laparotomy sponges were packed to retract the bowel upwards. A pair of Allis clamps were placed along the intraperitoneal portions of the vagina at the 5 and 7 o'clock positions. Tension along these Allis clamps allowed for identification of the uterosacral ligaments bilaterally. Also , the ureters were carefully palpated to avoid them. A pair of 0 Vicryl sutures were passed around the uterosacral ligaments of the level of the ischial spine bilaterally, totalling 4. Cystoscopy was performed while placing tension on the vault suspension sutures. Spillage of pyridium- stained urine was noted bilaterally. Next, a fout 3-0 Prolene sutures were placed transversely through the cul-de-sac peritoneum. This was performed while using a gloved finger in the rectum as to avoid penetrating the underlying rectal mucosa. Tying these sutures obliterated the enterocele. 3. Anterior colporrhaphy with Xenform graft augmentation: Lidocaine 0.5% with 1 /221515 epinephrine was infiltrated along the anterior vaginal wall mucosa. A midline vertical incision was made through the anterior vaginal wall. The vaginal wall was dissected off the underlying pubocervical and pubovesical fascia. The dissection was extended laterally beyond the ischial pubic rami. It was noted that the pubocervical and pubovesical fascial tissues were deficient and thin. The cystocele was plicated in 2 layers, the first layer with 2-0 Vicryl suture in interrupted fashion, the second layer with 2-0 Tycron suture in an interrupted fashion. A trapezoidal piece of Xenform graft was then incorporated atop the plicated area far laterally. The graft was secured to the obturator internus membrane. At the level of the bladder neck, an upside down triangular piece of graft was excised so that there was no over-support created along the level of the bladder neck. Apically , the graft was passed through the proximal uterosacral ligament sutures. A moderate amount of vaginal mucosa was needed to be excised. The vault suspension sutures were then passed through the planned apex of the vagina. Two were placed through the anterior apex and the other two, through the posterior apex. The vagina was then reapproximated using 3-0 Vicryl suture in a running-locked fashion. The high uterosacral ligament vaginal vault suspension sutures were tied and this elevated the apex of the vagina high up into the hollow of the sacrum. 4. Posterior colpoperineorrhaphy: EUA revealed a POPQ stage 2 rectocele. Lidocaine 0.5% with 1:200,000 of epinephrine was infiltrated along the perineum and posterior vaginal wall mucosa. A thin wedge of perineum was excised. A Midline vertical incision was made through the posterior vagina with a scalpel. The vaginal mucosa was dissected off the underlying rectovaginal tissues. It was noted the fascial tissues were sufficient. The rectocele was repaired first in a site-specific defect fashion, and then it was plicated using 2-0 Vicryl suture in an interrupted fashion. A small amount of excess posterior vaginal mucosa was excised. The vagina was reapproximated using 3-0 Vicryl suture in a running-locked fashion. The perineum was reapproximated using 2-0 Vicryl suture in an interrupted fashion. The skin was reapproximated using 3-0 Vicryl suture in a subcuticular fashion. 5. TVT-Obturator sling and cystoscopy. Lidocaine 0.5% with 1/979054 epinephrine was infiltrated along the anterior vaginal wall mucosa at the level of the mid urethra. Midline vertical incision was made at that level, 2 periurethral tunnels were created with Metzenbaum scissors. Two stab incisions were created at the skin at the groin at a level 2 cm superior to the external urethral meatus and 2 cm lateral to the fold created between the vulva and thigh. Morales catheter had already been inserted. A butterfly guide was inserted into the right periurethral tunnel, a curved helical needle was inserted on top of the guide and rotated out to the ipsilateral skin incision. The same procedure was performed on the contralateral side. Next the Morales catheter was removed. Cystoscopy was performed. There was no inadvertent penetration of the sling to the vagina, urethra or bladder. A large bladder diverticulum was noted along the posterior dome of the bladder. The bladder otherwise appeared normal. Both ureteric orifices were visualized and noted to be functional by the brisk spillage of pyridium-stained urine. The plastic sheaths of the sling were removed. The bladder was filled with 300 mL of sterile water. Using the Crede maneuver, sling tension was appropriately adjusted. Also a large right angle clamp was allowed to easily pass behind the sling so that the sling was placed in a tension-free manner. The sling ends were cut at the level of the skin. The skin was reapproximated using Mastisol, Steri-Strips and band-aids. The vagina was reapproximated using 3-0 Vicryl suture in a running fashion. The vagina was packed with Premarin-lubricated packing. The 16F indwelling morales catheter was connected to straight drainage. The patient's hips were periodically deflexed during the case. There were no complications. The EBL was 300 ml. All sponges and instruments were accounted for. She was taken to the recovery room in stable condition. Complications There were no periprocedural complications identified. Surgical Specimen Removed: Yes Specimen sent to Pathology: Yes Surgical Specimen description: uterus, cervix, right tube/ovary Anesthetic Plan: GA, SAB Grafts, Implants: Grafts-See Implant Record, Implants-See Implant Record Output, Estimated Blood Loss: 300 (ml EBL) Blood Administration during ochoa: No Drains: None Catheters: Urethral 2 Way Morales Post Operative Plan overnight stay in bed for observation as she requires a voiding trial in the am copies to: Dexter Santos MD; Hermelindo Smith DO; Robert Esqueda MD, William Andre Z MD Dec 10, 2016 16:32
[2016-12-10] MEDS: oxyCODONE-Acetamin 5-325 mg Tablet PO PRN ×2 (17:21→21:08)
[2016-12-10] MEDS: Insulin LISPRO Low-Dose Scale SUBQ SCH ×2 (17:28→22:00)
[2016-12-10] MEDS: BusPIRone 15 mg Dividose Tablet PO SCH (20:30)
[2016-12-11 00:03] VITALS: BP 95/60; PULSE 76; RESP 18; O2SAT 98
[2016-12-11] MEDS: Acetaminophen IV 1,000 MG in IV Premix 1 EACH IV SCH ×2 (00:50→08:45)
[2016-12-11 04:00] VITALS: BP 132/73; PULSE 104; RESP 20; O2SAT 98
[2016-12-11] MEDS: oxyCODONE-Acetamin 5-325 mg Tablet PO PRN ×3 (04:37→14:23)
--- NOTE | 2016-12-11 05:00 | NUR ---
pain pt reports pain in her back and buttocks 8/10 in intensity. she also reports being very nervous and scared about her recovery. she was given one percocet and 0.5mg PO ativan at bedtime and was able to sleep for most of the night, appearing comfortable. this morning she again complains of back pain 8/10 and a cramping sensation in her lower abdomen. she was helped into a more comfortable position and was again given one percocet for pain. vaginal packing in place, christy pad has been changed twice this shift for moderate serous sanguineous drainage. pt does not use her call light, she needs frequent rounding to check on her. she is also forgetful. she could not remember what medications she takes at home and insisted some of the meds the MD had ordered from her med rec she was no longer taking. after a long conversation pt agreed to take every thing ordered except the buspar, she says she is sure she is no longer taking that medication. pt has high anxiety about her medications and worries about taking meds she is not supposed to. bed in low position, call light within reach. hourly rounding continues.
[2016-12-11 05:38] LABS: BASOPHILS % (AUTO) 0.2 % (0-3); EOSINOPHILS % (AUTO) 0.9 % (0-5); MONOCYTES % (AUTO) 7.6 % (4-12); Mean Corpuscular Hemoglobin 27.6 pg (27.0-35.0); Mean Corpuscular Volume 85.1 fL (81-100); NEUTROPHILS % (AUTO) 77.7 % (40-74); Platelet Count 245 bil/L (150-400)
[2016-12-11] MEDS: Insulin LISPRO Low-Dose Scale SUBQ SCH ×2 (08:00→12:00)
[2016-12-11] MEDS: 0.9% Sodium Chloride 1,000 ML IV SCH ×2 (08:27→12:50)
[2016-12-11] MEDS ORDERED: Senna-Docusate 8.6-50 mg Tablet PO SCH (08:30)
[2016-12-11] MEDS: Heparin 5,000 Unit/mL Inj SUBQ SCH ×2 (08:30→15:30)
[2016-12-11 08:39] VITALS: BP 106/66; PULSE 97; RESP 18; O2SAT 97
[2016-12-11] MEDS: BusPIRone 15 mg Dividose Tablet PO SCH (08:39)
[2016-12-11] MEDS ORDERED: Nystatin 100,000 Unit/Gm 15 Gm Powder TOPICAL SCH (11:07)
[2016-12-11] MEDS ORDERED: Heparin 5,000 Unit/mL Inj SUBQ ONE (11:10)
--- NOTE | 2016-12-11 11:57 | PCM.PNSURG ---
Subjective Date of Service: Dec 11, 2016 Date of Service: Dec 11, 2016 Visit Information: Reason for Visit Uterovag Prolapse,Cystocele,Rectocele,Stress Incon Surgery/Surgery Date VAGINAL HYSTERECTOMY 12/10/16 Post-Op Day # 1 Subjective: AVSS Hct 30.8 c/o back discomfort - using percocet and IV tylenol. no morphine today sitting up in bed voiding trial in progress OR explained ate 50% of the breakfast this am sugars stable no nausea/vomiting Pain Management: PO Objective Vital Sign- Last 8 Hours Date Time Temp Pulse Resp B/P Pulse Ox O2 Delivery O2 Flow Rate FiO2 12/11/16 08:39 36.9 97 18 106/66 97 Nasal Cannula 2.00 12/11/16 08:15 Supplement Oxygen 12/11/16 04:00 36.6 104 20 132/73 98 Nasal Cannula 2.00 Intake and Output- Last 8 Hour 12/11/16 Cumulative From/Thru 06:59 12/09/16 17:30 - 12/11/16 06:12 Intake Total 436 ml 3874 ml Output Total 810 ml 2610 ml Balance -374 ml 1264 ml Intake Oral 436 ml 636 ml IV Total 3238 ml Output Urine Total 810 ml 2010 ml Estimated Blood Loss 600 ml General: Alert, Oriented X3, Cooperative Lungs: Clear to Auscultation Abdomen: Benign Result Diagram: 12/11/16 0450 Assessment & Plan Impression 1. stable 2. Pain management issues Problems: Plan Improve pain management. Will stop IV narcotics and use oral Percocet and Ibuprofen discharge later today once stable copies to: Robert Esqueda MD, William Andre Z MD Dec 11, 2016 11:57
--- NOTE | 2016-12-11 11:59 | PCM.DIGYN ---
Surgical Discharge Instruction Dates of Hospitalization Date of Hospital Admission Providers Admitting Physician: Primary Care Physician: Hermelindo Smith DO Attending Physician: Robert Esqueda MD Diagnosis at Time of Discharge Post-operative diagnosis 1. POPQ stage 4 Uterine prolapse/enterocele/cystocele 2. POPQ stage 2 rectocele 3. Deficient pubovesical/pubocervical fascia 4. Stress incontinence Problems: Diet Discharge Diet: Diabetic Activity Discharge Activity-General: Restrict lifting to no greater than (10 lb for 6 wk ) Dressing and Incisional Care Dressing Care: Allow Steri Stripes to fall off Hygiene: May shower Follow Up Plan Follow-up appointment: Weeks ([address] Esqueda's MA for a voiding trial; in [address] Esqueda) Call your provider for: Fever, Chills, Shortness of breath, Vomitting, Heavy vaginal bleeding, Wound redness, Increasing pain Robert Esqueda MD Dec 11, 2016 11:59
[2016-12-11 15:22] VITALS: BP 107/68; PULSE 83; RESP 16; O2SAT 96
--- NOTE | 2016-12-11 17:57 | NUR ---
Discharge: Patient home with son and daughter in law at 1730 with all belonging. Removed vaginal packing at 1030, patient tolerated fair. Removed FC at 1100 today and patient unable to void on own after 30 minutes, put new FC in place and patient dc'd with FC. Explained void trials, pain management, ambulation guidelines and activity restrictions to patient and family. Daughter in law performed emptying FC with stop plug. Patient pain managed with PO Percocet and Motrin, reaching 2 out of 10. Minimal sero-sanguinous drainage from vagina, dressings intact.
--- NOTE | 2016-12-11 18:31 | NUR ---
Ambulation/Diet Patient up to BSC with SBA several times this shift, and used FWW to ambulate around her bed, tolerated fair. Patient able to eat 50% of breakfast and 50% of lunch with out complaints of N/V.
--- NOTE | 2016-12-12 11:36 | PATH ---
SURGICAL PATHOLOGY Attending Physician:Robert Esqueda, CASE STATUS: Signed Out PATIENT NAME: ARCHANA PAYNE PID: [id number] : 1940 DATE COLLECTED:12/10/2016 00:00 SPECIMEN: Uterus +/- tubes/ovaries, except neoplastic, prolapse CLINICAL HISTORY: UTEROVAGINAL PROLAPSE 1). RIGHT OVARY AND FALLOPIAN TUBE, CERVIX, UTERUS OUT @ 9:00 FIXATIVE @ 9:09 FINAL DIAGNOSIS: 1.UTERUS WITH RIGHT OVARY AND FALLOPIAN TUBE (CLINICAL UTERINE PROLAPSE): CYSTIC ATROPHIC CHANGES, ENDOMETRIUM, NEGATIVE FOR ATYPIA. BENIGN CYSTIC ENDOMETRIAL POLYP. SMALL FOCUS OF ENDOMETRIOSIS, FALLOPIAN TUBE.. OVARY UNREMARKABLE. ICD10 N81.4 GROSS DESCRIPTION: The specimen is received in formalin, labeled with the patient's name, sublabeled as right ovary & fallopian tube, cervix & uterus and consists of a uterus (58 g, 2.3 cm AP, 8.2 cm SI, 2.8 cm ML) and a detached ovary (1.4 x 1.2 x 1.0 cm) with an attached fimbriated fallopian tube (length-3.5 cm, diameter-0.4 cm). The second ovary and fallopian tube are absent. The cervix (2.5 cm AP, 3.7 cm ML) has a vaginal cuff (up to 3.2 cm in depth), transverse os and patent endocervical canal. The endometrium (average thickness-0.1 cm) is gandhi-pink glistening and shaggy. The myometrium (thickness-1.0 cm) is gandhi-white and unremarkable. The serosa is pale gandhi smooth and shiny. The ovary has gandhi-yellow smooth shiny flat serosa. The parenchyma is gandhi-white and solid firm corpus albicans identified. The fallopian tube has gandhi-purple smooth shiny serosa and a gandhi unremarkable lumen. Section code: (A-B) anterior cervix, bisected and submitted SI; (C-D) posterior cervix, bisected and submitted SI; (E, F) anterior endomyometrium; (G, H) posterior endomyometrium; (I) ovary, serially sectioned, access representative; (J) fallopian tube, serially sectioned, access representative; (K) fimbria, bivalved, entirely submitted. 12/11/16 JM MICRO DESCRIPTION: See diagnosis. ICD-9 CODES: CPT CODES: 63236 Electronically Signed Out Francisco Javier Levy MD Located Within [facility] Pathology [facility] [address], [place] [address] Technical component performed at [facility], [facility] [address], [place], [address]
== END 2016-12-11 17:28 | disposition home or self-care (01) ==
LOC: SAS 05:37 → OSC 14:18 → SAS 12-11 17:28
PROVIDERS: ATTEND Obstetrics & Gynecology
DX: N81.4 Uterovaginal prolapse, unspecified (principal); N81.6 Rectocele; N39.3 Stress incontinence (female) (male); I10 Essential (primary) hypertension; F32.9 Major depressive disorder, single episode, unspecified; E11.9 Type 2 diabetes mellitus without complications; E78.00 Pure hypercholesterolemia, unspecified; F41.9 Anxiety disorder, unspecified; F03.90 Unspecified dementia, unspecified severity, without behavioral disturbance, psychotic disturbance, mood disturbance, and anxiety; Z87.440 Personal history of urinary (tract) infections; Z79.84 Long term (current) use of oral hypoglycemic drugs
CPT/HCPCS: 36415; 57260; 57288; 58262; 81001; 85025; 86850; 87086; 94640; 94664; C1763; C1771; J0131; J0690; J1580; J1644; J1815; J1940; J2250; J2274; J2370; J2405; J2710; J3010; J7030; J7120

== ENCOUNTER 2017-03-04 05:51 | Day surgery (SDC) | payer MEDICARE, OTHER ==
[~2017-03-04] VITALS: Ht 157.5 cm; Wt 72.2 kg
[2017-03-04] VITALS (7 sets, daily range): BP systolic 97–123; BP diastolic 39–76; PULSE 75–86; RESP 12–20; O2SAT 94–99
[~2017-03-04 05:51] MED LIST changes: +ARIP15TA2 PO; -ATOR20TA PO; +ATOR20TA65 PO; -BUSP30TA2 PO; -CEPH500C PO; -CITA20TA PO; +CeFAZolin Inj 2 GM in IV Premix 1 EACH IV ONE; +GABA-500 PO; -LORA-302 PO; +Lactated Ringer's 1,000 ML IV SCH; +MAGN400T39 PO; +MELO-259 PO; +MIRT30TA6 PO; -PREC VAGINAL; -QUET50TA PO; +QUET50TA4 PO; +SENN-133 PO; +SULF20OR7 PO; +VENL150C PO
[2017-03-04] MEDS ORDERED: Propofol 10,000 mCg/mL 20 mL Inj ONE (05:52)
[2017-03-04] MEDS ORDERED: EPHEDrine/NS 5 mg/mL 5 mL Syringe ONE (05:52)
[2017-03-04] MEDS ORDERED: Dexamethasone 4 mg/mL Inj ONE (05:52)
[2017-03-04] MEDS ORDERED: Ondansetron 2 mg/mL 2 mL Inj ONE (05:52)
[2017-03-04] MEDS ORDERED: fentaNYL-PF 50 mCg/mL 2 mL Inj ONE (05:52)
[2017-03-04] MEDS ORDERED: CeFAZolin 2 Gm/50 mL D5W Duplex Bag IV ONE (06:41)
--- NOTE | 2017-03-04 07:24 | PCM.HPANE ---
Patient Data Surgeon Admitting Provider: Attending Provider:Robert Esqueda MD Primary Care Physician:Celine Barajas PA-C Other Provider:Noel Deluna Anesthesia Reason for Visit Urinary Retention Ht/WT & BMI Height (Feet): 5 Height (Inches): 2 Weight (Kilograms): 72.2 Body Mass Index 29.00 Allergies Coded Allergies: fluoxetine (Verified Allergy, Unknown, 03/03/17) sertraline (Verified Adverse Reaction, Severe, Anxiety, 03/03/17) "I go bananas" Uncoded Allergies: SEAFOOD (Allergy, Unknown, UNKNOWN, 12/09/16) Past Anesthesia History Anesthesia History: Denies:: Abnormal Airway, Anesthesia Reactions, Difficult Intubation, Fam Anesthesia Reaction, Fam Malignant Hypertherm, Malignant Hyperthermia Diabetes History Hx Diabetes?: Yes Type of Diabetes: Type II Glycemic Control: Oral Medication Current Bedside Blood Glucose: 104 MRSA MRSA: No Medications Home Meds Incl Beta Maria Esther: No Reported Medications Metformin 500 Mg [id number] Mg PO BID Ref 0 03/03/17 Sennosides (Senna)8.6 Mg Tablet8.6 Mg PO DAILY PRN For Constipation 03/03/17 Venlafaxine ER (Effexor XR)150 Mg Wbeamrm041 Mg PO DAILY Ref 0 03/03/17 Atorvastatin Calcium 20 Mg Wamaeq85 Mg PO DAILY Ref 0 03/03/17 Aripiprazole (Abilify)15 Mg Aeiezp25 Mg PO DAILY Ref 0 03/03/17 Mirtazapine 30 Mg Mekouj27 Mg PO HS Ref 0 03/03/17 Lisinopril 20 Mg Xvtgci14 Mg PO DAILY 30 Days Ref 0 03/03/17 Meloxicam 7.5 Mg Tablet7.5 Mg PO DAILY 30 Days Ref 0 03/03/17 Gabapentin 100 Mg Jjszjmq958 Mg PO DAILY 30 Days Ref 0 03/03/17 Magnesium Oxide (Magnesium)400 Mg Gkrbfj484 Mg PO DAILY 03/03/17 Sulfamethoxazole/Trimethoprim Susp (Bactrim 800-160 mg/20 ml Tram)800 Mg-160 Mg/ 20 Ml Oral.susp20 Ml PO BID 03/03/17 Discontinued Reported Medications Quetiapine Fumarate ER (Seroquel XR)50 Mg Mubssc60 Mg PO DAILY 03/03/17 Cephalexin 500 Mg Nhproem446 Mg PO HS #40 CAPSULE Ref 0 12/09/16 Atorvastatin (Lipitor)20 Mg Wqpvph28 Mg PO DAILY Ref 0 12/09/16 Lorazepam (Ativan)0.5 Mg Tablet0.5 Mg PO BID PRN For Anxiety Ref 0 12/09/16 Quetiapine Fumarate (Seroquel)50 Mg Exxbka86 Mg PO HS Ref 0 12/09/16 Metformin 500 Mg Kpkpwb756 Mg PO DAILY Ref 0 12/09/16 Lisinopril 20 Mg Zzwzxz22 Mg PO DAILY 30 Days Ref 0 12/09/16 Citalopram Hydrobromide (Celexa)20 Mg Stvnsy60 Mg PO DAILY Ref 0 12/09/16 Discontinued Scripts Buspirone 30 Mg Xtaxtq04 Mg PO BID #60 TABLET Ref 0 Prov:Kayden Hyman Boy DO 09/25/16 History History of ENT Problems?: No HEENT History: Denies:: Abnormal Airway Cataracts Difficult Intubation Dysphagia Hearing Problem Sinus Problem TMJ Denture Type: None Teeth Condition: Within Normal Limits Hx of Heart Problems?: Yes Cardiovascular History: Positive for:: Hypertension (HYPERLIPIDEMIA) Denies:: Congestive Heart Failure Heart Murmur Hx of Respiratory Problem?: No Respiratory History: Denies:: Tuberculosis Use of C-PAP Machine Hx Neurologic Problems?: Yes Neurological History: Positive for:: CVA (Mild ) Denies:: Alzheimer's Disease Dementia Dizziness Headaches Multiple Sclerosis Parkinson's Disease Seizures TIA Hx of GI Problems?: Yes Hx of Problems?: Yes Genitourinary History: Positive for:: Urinary Tract Infection (RECURRENT) Denies:: HX of Hemodialysis Kidney Stones HX of Peritoneal Dialysis: No Female Hx: Denies:: Currently Skin History: Denies:: History Skin Disorders? Pressure Ulcers Hx Musculoskeletal Problems?: Yes Musculoskeletal History: Positive for:: Musculoskeletal Trauma (S/P KNEE ARTHROSCOPY) Hx of Psycho/Social Problems?: Yes Psycho Social History: Positive for:: Anxiety (PANIC DISORDER) Hx Depression (Severe) Denies:: Bipolar Disorder Suicide Attempt Hx Surgeries?: Yes (BHAVESH,KNEE SCOPE,GASTRIC SLEEVE,LT SO) Hx Any Other Health Problems?: Yes Other History: Denies:: Cancer Endocrine Disease Hospitalization Thyroid Disease History Blood Transfusions: Positive for:: Accept Blood Products? Denies:: Blood Transfusions Hx Diabetes: YesBedside Blood Glucose: 104 Hx Alcohol Use: NoHx Substance Use: No Smoking Status: Unknown if Ever Smoker Have You Smoked inLast 12 mo: No Stop/Bang S-Snoring: Do You Snore Loudly: No T-Tired: feel tired, fatigued: No O-Obsered: Observed not breath: No P-Blood Pressure: treated: Yes B- Body Mass Index > 35 kg/m2: No A- Age over 50: Yes N- Neck Large Circumference: No G- Gender Male: No THOMAS Total Score: 2 THOMAS Risk Assessment: Low Risk, <3 Yes Risk Assessment Category Category 1A: Patient has history of documented sleep apnea, and HAS NOT received any narcotic, sedative or anesthesia administration during this stay. Category 1B: Patient has history of documented sleep apnea, and HAS received any narcotic , sedative or anesthesia administration during this stay Category 2: Patient has SUSPECTED Obstructive Sleep Apnea, and HAS received any narcotic , sedative or anesthesia administration during this stay. Category 3: Patient has SUSPECTED Obstructive Sleep Apnea and HAS NOT received narcotic, sedative or anesthesia administration during this stay. Category 4: Outpatient in Procedural Areas with known sleep apnea or who screen positive for High Risk via the STOP/BANG questionnaire. Exam Exam Vital Signs Vital Signs Date Time Temp Pulse Resp B/P Pulse Ox O2 Delivery O2 Flow Rate FiO2 03/04/17 07:07 36.0 75 16 97/44 98 Room Air General Appearance: Alert, Oriented X3, Cooperative, No Acute Distress HEENT/AIRWAY: MP 2, Neck Movement Lungs: Clear to Auscultation, Normal Air Movement Heart: Exam Unremarkable, Regular Rate/Rhythm, No Murmurs/Rubs/Gallops Meds/Labs/Diagnostics Bedside Blood Glucose: 104 Plan Impression Patient chart reviewed, patient interviewed and anesthestic plan with risks, benefits, and alternatives discussed, and informed consent obtained. NPO per Anesth. Guidelines: Yes ASA Physical Status: ASA2 Mod Systemic Disease Anesthetic Plan: GA Bene/Risks/Altern/Consents: Yes HP Complete Prior to Induction: Yes Jonny Pearson MD Mar 04, 2017 07:24
[2017-03-04] MEDS ORDERED: Lactated Ringer's 500 ML IV PRN (07:27)
[2017-03-04] MEDS ORDERED: Lactated Ringer's 1,000 ML IV SCH (07:27)
[2017-03-04] MEDS ORDERED: HYDROmorphone 1 mg/mL Inj IVPUSH PRN (07:30)
[2017-03-04] MEDS ORDERED: Phenylephrine 10,000 mCg/mL Inj IVPUSH PRN (07:30)
[2017-03-04] MEDS ORDERED: Atropine 0.4 mg/mL Inj IVPUSH PRN (07:30)
[2017-03-04] MEDS ORDERED: fentaNYL-PF 50 mCg/mL 2 mL Inj IVPUSH PRN (07:30)
[2017-03-04] MEDS ORDERED: Ondansetron 2 mg/mL 2 mL Inj IVPUSH PRN ×2 (07:30→08:35)
[2017-03-04] MEDS ORDERED: Dexamethasone 4 mg/mL Inj IVPUSH PRN (07:30)
[2017-03-04] MEDS ORDERED: MetoCLOpramide 5 mg/mL 2 mL Inj IVPUSH PRN ×2 (07:30→08:35)
[2017-03-04] MEDS ORDERED: Labetalol 5 mg/mL 20 mL Inj IV PRN (07:30)
[2017-03-04] MEDS ORDERED: EPHEDrine Sulfate 50 mg/mL Inj IVPUSH PRN (07:30)
[2017-03-04] MEDS ORDERED: Lactated Ringer's 1,000 ML IV ONE (07:37)
[2017-03-04] MEDS ORDERED: Lidocaine 1%-Epi 1:100,000 20 mL Inj INJ ONE (08:14)
[2017-03-04] MEDS ORDERED: Sodium Chloride LOK Flush 10 mL Syringe IVFLUSH ONE (08:14)
[2017-03-04] MEDS ORDERED: Gentamicin 40 mg/mL 2 mL Inj IRRIGATION ONE (08:17)
[2017-03-04] MEDS ORDERED: diphenhydrAMINE 25 mg Capsule PO PRN (08:35)
[2017-03-04] MEDS ORDERED: oxyCODONE-Acetamin 5-325 mg Tablet PO PRN (08:35)
--- NOTE | 2017-03-04 08:40 | PCM.DIGYN ---
Surgical Discharge Instruction Dates of Hospitalization Date of Hospital Admission outpatient on 03/04/17 Providers Admitting Physician: Primary Care Physician: Celine Barajas PA-C Attending Physician: Robert Esqueda MD Diagnosis at Time of Discharge Diagnosis at time of discharge urinary retention Post-operative diagnosis same Problems: Diet Discharge Diet: Diabetic Activity Discharge Activity-General: No lifting >15 pounds for 2 weeks Dressing and Incisional Care Hygiene: May shower Follow Up Plan Follow-up appointment: Weeks ([address] Esqueda; if home with a morales catheter, see his MA in 1 wk) Call your provider for: Fever, Chills, Shortness of breath, Vomitting, Heavy vaginal bleeding, Increasing pain Robert Esqueda MD Mar 04, 2017 08:40
--- NOTE | 2017-03-04 08:55 | PCM.SURGOP ---
Surgical Operative Report Date of Service: Mar 04, 2017 Pre Operative Diagnosis urinary retention Post Operative Diagnosis same Procedure: Revision of mid-urethral TVT-O sling and cystoscopy Surgeon and Core Blower: Surgeon: Robert Esqueda MD Assistants: None Indication for Procedure 4 week ago, she underwent the following Procedure: 1. vaginal hysterectomy with right salpingoophorectomy 2. anterior repair with Xenform biologic graft augmentation. 3. posterior colpoperineorrhaphy 4. high uterosacral ligament vaginal vault suspension, cystoscopy, enterocele repair 5. TVT-obturator sling She has failed several voiding trials in the office previously. She presents for a voiding trial. She has been using an indwelling catheter during an in- hospital admission for a suicide attempt in [place]. She had several UTI's then. A takedown of sling has been booked for Mar 04 at [facility] at 730 am. The patient signed the consent form. She agreed with the risks, benefits, and alternatives to surgery. The risks included but not limited to recurrence or persistence voiding dysfunction, recurrence of persistence of incontinence, development or urethral fistula, of urinary urgency, urgency or recurrent stress incontinence, frequency, and need for intermittent self-catheterization or prolonged indwelling catheterization, injury to other organs including bladder, bowel, nerves or blood vessels. Need for blood transfusion, Development of vaginal scarring, dyspareunia, defecatory dysfunction, recurring pain, hematoma formation, urinary tract infection, cellulitis, necrotizing fascitis, and medical risks including myocardial infarction, stroke or VTE. Findings: see dictation Procedure Details The patient was brought to the operating room and was placed under general anesthesia. She was prepped and draped in the normal fashion for vaginal surgery with the legs in Yellofin stirrups. Care was taken to position the patient.. She was given a dose of IV Ancef 1g intraoperatively. 1. Revision of TVT-obturator sling. Lidocaine 1% with 1/[id number] epinephrine was infiltrated along the anterior vaginal wall mucosa at the level of the mid- urethra. A midline vertical incision was made through the anterior vaginal wall at the level of the mid-urethra. During the dissection, the previous TVT -O sling was easily identified. The mid portion of the urethral sling was dissected off the underlying pubourethral tissue by passing a thin hemostat behind the sling. The sling was incised at the mid-portion (approx. a 2-3 mm portion). The vagina was reapproximated with 3-0 vicryl suture in a continuous fashion. 2. Cystoscopy: We then proceeded with cystoscopy. Cystoscopy revealed a normal appearing urethra and bladder. Both ureteric orifices were visualized. There was no inadvertent injury to the urethra. The estimated blood loss was minimal. There were no complications. All sponges and instruments were accounted for. The patient was taken to the recovery room in stable condition. Complications There were no periprocedural complications identified. Surgical Specimen Removed: Yes Specimen sent to Pathology: Yes Surgical Specimen description: small portion of urethral sling Anesthetic Plan: GA Grafts, Implants: None Output, Estimated Blood Loss: 5 (ml EBL) Blood Administration during ochoa: No Drains: None Catheters: Urethral [address] [place] Post Operative Plan discharge home today Attending Statement I performed the procedure myself copies to: Robert Esqueda MD, William Andre Z MD Mar 04, 2017 08:55
--- NOTE | 2017-03-04 09:15 | PCM.ANEP1 ---
Post Anesthesia PACU Phase 1 Assessment Vital Signs Vital Signs Date Time Temp Pulse Resp B/P Pulse Ox O2 Delivery O2 Flow Rate FiO2 03/04/17 08:55 36.2 79 15 111/46 94 Room Air 03/04/17 08:45 80 13 103/43 94 Room Air 03/04/17 08:40 81 13 100/76 94 Room Air 03/04/17 08:35 82 12 114/42 94 Room Air 03/04/17 08:30 36.5 84 20 112/39 99 Simple Mask 8 03/04/17 07:07 36.0 75 16 97/44 98 Room Air Anesthetic Administered: GA Level of Alertness: Awake, talking CHILDS's with Equal Strength: Yes Pain: No Nausea or Vomiting: No CV Function & Hydration Stable: Yes Airway Device: Oralpharangeal Airway Oxygen Delivery: Room Air Lungs: Clear to Auscultation, Normal Air Movement Dermatome Level: Full Sensation PACU Phase 2 Assessment Complications: No Follow up Care: Yes Patient Instructions Provided: N/A Jonny Pearson MD Mar 04, 2017 09:15
[2017-03-04] MEDS ORDERED: Insulin Human REGular 300 Unit/3 mL Inj SUBQ SCH (14:30)
[2017-03-04] MEDS ORDERED: Dextrose 10% 250 ML IV PRN (14:45)
--- NOTE | 2017-03-06 15:55 | PATH ---
SURGICAL PATHOLOGY Attending Physician:Robert Esqueda, CASE STATUS: Signed Out PATIENT NAME: ARCHANA PAYNE PID: [id number] : 1940 DATE COLLECTED:03/04/2017 00:00 SPECIMEN: Foreign Body CLINICAL HISTORY: URINARY RETENTION, REVISION OF URETHRAL SLING 1). SMALL SECTION OF URETHRAL SLING FINAL DIAGNOSIS: 1.SMALL SECTION OF URETHRAL SLING, REVISION: - FRAGMENT OF FIBROADIPOSE TISSUE WITH FOREIGN BODY-TYPE GIANT CELL REACTION. - NO EVIDENCE OF MALIGNANCY. ICD10 R33.9 GROSS DESCRIPTION: The specimen is received in formalin, labeled with the patient's name, sublabeled as portion of the urethral sling, and consists of a piece of blue plastic mesh embedded in jefferson-white glistening tissue (0.7 x 0.2 x 0.2 cm). Section code: (A) tissue, entirely submitted. Note: The tissue has been removed from the mesh. The mesh is not suitable for histological analysis therefore is not submitted. 03/05/17 JM MICRO DESCRIPTION: See diagnosis. ICD-9 CODES: CPT CODES: 1: 51320 Electronically Signed Out Vin Campbell MD [facility] [address], [place] [address] Technical component performed at [facility], [address] [place] [address] Ave[address], [place], [address]
== END 2017-03-04 23:59 | disposition home or self-care (01) ==
LOC: SAS 05:51
PROVIDERS: ATTEND Obstetrics & Gynecology
DX: R33.9 Retention of urine, unspecified (principal); I10 Essential (primary) hypertension; E78.5 Hyperlipidemia, unspecified; E11.9 Type 2 diabetes mellitus without complications; E78.00 Pure hypercholesterolemia, unspecified; F41.8 Other specified anxiety disorders; Z90.710 Acquired absence of both cervix and uterus; Z87.440 Personal history of urinary (tract) infections; Z79.84 Long term (current) use of oral hypoglycemic drugs; Z98.84 Bariatric surgery status; Z98.890 Other specified postprocedural states
CPT/HCPCS: 57287; 87086; 88300; J0690; J1100; J1580; J2250; J2405; J2704; J3010; J7120